=== PATIENT | female | born 1965 | race Caucasian/White ===

== ENCOUNTER 2022-09-07 22:17 | Outpatient (REF) | payer BC, SELFPAY ==
[2022-09-12 10:11] LABS: Age Gdln ACOG Testing Note (.); HPV Aptima Negative (Negative); IGP, Aptima HPV, rfx 16/18,45 Note (.)
== END 2022-09-07 22:18 | disposition home or self-care (01) ==
LOC: LAB 22:17
PROVIDERS: PCP Internal Medicine; Visit Provider Obstetrics & Gynecology
DX: Z12.4 Encounter for screening for malignant neoplasm of cervix (principal)
CPT/HCPCS: 87624; G0145

== ENCOUNTER 2022-10-19 09:28 | Outpatient (OUT) | payer BC, SELFPAY ==
--- NOTE | 2022-10-19 09:32 | XR_ITS ---
The [address] [address] Patient Name: KRYSTA CAICEDO MRN: [id number] date: 1965 Sex: F Assigned Patient Location: [facility] Current Patient Location: [facility] Accession/Order Number: [id number] Exam Date: 10/19/2022 09:34 Report Date: 10/19/2022 09:49 At the request of: GONZALO CARSON Procedure: XR hand LT min 3V PROCEDURE: XR hand LT min 3V COMPARISON: None. HISTORY: Left Thumb pain FINDINGS: BONES:No acute fracture or dislocation. Mild degenerative changes with marginal osteophyte formation SOFT TISSUES:Negative. No visible soft tissue swelling. EFFUSION:None visible. OTHER: Negative. XR/XR hand LT min 3V IMPRESSION: Mild degenerative change Electronically authenticated by: LOVE KRUGER Date: 10/19/2022 09:49
== END 2022-10-19 09:29 | disposition home or self-care (01) ==
LOC: RAD 09:28
PROVIDERS: PCP Internal Medicine; Visit Provider Anesthesiology Pain Medicine
DX: M79.645 Pain in left finger(s) (principal)
CPT/HCPCS: 73130

== ENCOUNTER 2022-11-22 09:17 | Outpatient (OUT) | payer BC, SELFPAY ==
[2022-11-22 09:31] LABS: Basophils Percent Auto 0.5 % (0.2-2.0); Eosinophils Absolute Auto 0.1 10^3/uL (0.0-0.7); Eosinophils Percent Auto 1.3 % (0.9-7.0); Hematocrit 40.5 % (36.0-48.0); Hemoglobin 13.2 g/dL (12.0-16.0); Immature Granulocytes Abs Auto 0.02 10^3/uL (0.00-0.03); Immature Granulocytes Pct Auto 0.4 % (0.0-0.5); Lymphocytes Absolute Auto 1.7 10^3/uL (1.2-3.8); Lymphocytes Percent Auto 31.2 % (20.5-60.0); Mean Corpuscular HGB Conc 32.6 g/dL (29.9-35.2); Mean Corpuscular Hemoglobin 28.9 pg (26.7-34.0); Mean Corpuscular Volume 88.6 fL (81.0-99.0); Mean Platelet Volume 8.7 fL (9.5-13.5); Monocytes Absolute Auto 0.5 10^3/uL (0.3-0.8); Monocytes Percent Auto 8.9 % (1.7-12.0); Neutrophils Absolute Auto 3.2 10^3/uL (1.4-6.5); Neutrophils Percent Auto 57.7 % (43.0-75.0); Platelet Count 251 10^3/uL (150-450); Red Blood Count 4.57 10^6/uL (4.20-5.40); Red Cell Distribution Width 11.4 % (11.0-15.0); White Blood Count 5.5 10^3/uL (4.0-11.0)
[2022-11-22 09:52] LABS: Estimated Average Glucose 111 mg/dL; Glycohemoglobin A1C 5.5 % (4.5-6.2)
[2022-11-22 10:13] LABS: Anion Gap 12.8; Carbon Dioxide 28.9 mmol/L (21.0-32.0); Chloride 105 mmol/L (98-107); Potassium 4.7 mmol/L (3.5-5.1); Sodium 142 mmol/L (136-145)
[2022-11-22 10:14] LABS: Alanine Aminotransferase 27 U/L (14-59); Alkaline Phosphatase 95 U/L (46-116); Aspartate Amino Transferase 19 U/L (15-37); BUN Creatinine Ratio 18.7; Bilirubin Total 0.5 mg/dL (0.2-1.0); Calcium 9.5 mg/dL (8.5-10.1); Estimated GFR (African America >60 (>=60); Estimated GFR (Non-African Ame 53 (>=60); Glucose 101 mg/dL (74-106); Total Protein 7.4 g/dL (6.4-8.2)
[2022-11-22 10:15] LABS: Albumin Globulin Ratio 1.2; Chol HDL Ratio 4.1; Cholesterol 178 mg/dL (<=200); Globulin 3.4 g/dL; HDL Cholesterol 43 mg/dL (40-60); Thyroid Stimulating Hormone 1.428 uIU/mL (0.358-3.740); Triglycerides 138 mg/dL (<=150); VLDL CHOLESTEROL 27.6 mg/dL
== END 2022-11-22 09:18 | disposition home or self-care (01) ==
LOC: LAB 09:17
PROVIDERS: PCP Internal Medicine; Visit Provider Internal Medicine
DX: Z00.00 Encounter for general adult medical examination without abnormal findings (principal)
CPT/HCPCS: 36415; 80053; 80061; 83036; 84443; 85025

== ENCOUNTER 2022-12-26 11:28 | Day surgery (SDC) | payer BC, SELFPAY ==
[2022-12-26] MEDS: CEFAZOLIN SODIUM/DEXTROSE,ISO 2 GM/50 ML PIGGYBACK IV (11:44)
[2022-12-26] MEDS: LIDOCAINE HCL 1%-EPINEPHRINE 1:100,000 20 ML MDV INJ (12:00)
[2022-12-26] MEDS: BUPIVACAINE HCL 0.5% PF 50 MG/10 ML VIAL INJ (12:00)
--- NOTE | 2022-12-26 12:48 | PM.ORPRC ---
Procedure Note Date of procedure: 12/26/22 Pre-op diagnosis: 1. Right trigger thumb Post-op diagnosis: same as pre-op Procedure: Operation performed: Right trigger thumb release Operative procedure: After informed consent was obtained the patient was brought to the operating room. In the preoperative holding area 2.5 mL 1% lidocaine with epinephrine and 2.5 mL 0.5% Marcaine plain were injected into the soft tissue over the proposed incision site of the right trigger thumb. The right hand was prepped and draped in the usual sterile fashion. A 1.5 cm incision was made in pre-existing transverse thumb crease overlying the A1 ernie. Blunt dissection was carried down through soft tissue in order to preserve superficial neurovascular structures. A1 ernie was identified and incised completely. Underlying tendon was visualized and found to be normal. Patient was then asked to flex and extend the finger and the triggering was resolved. The wound was irrigated and closed with nylon suture. Sterile dressing was placed. Patient was brought to the recovery room in stable condition. There were no intraoperative or immediate postoperative complications. Anesthesia: local Surgeon: Prudencio Prado Estimated blood loss (mL): 2 Pathology: none sent Condition: stable Disposition: PACU
== END 2022-12-26 12:45 | disposition home or self-care (01) ==
PROVIDERS: PCP Internal Medicine; Visit Provider Orthopaedic Surgery
PROC: (CPT 26055; principal; 2022-12-26 12:00)
DX: M65.311 Trigger thumb, right thumb (principal)
CPT/HCPCS: 26055

== ENCOUNTER 2023-01-03 12:20 | Outpatient (OUT) | payer BC, SELFPAY | END 2023-01-03 12:21 | disposition home or self-care (01) | LOC: PST 12:21 | PROVIDERS: PCP Internal Medicine; Visit Provider Orthopaedic Surgery | DX: Z01.818 Encounter for other preprocedural examination (principal); M65.311 Trigger thumb, right thumb ==

== ENCOUNTER 2023-02-15 12:29 | Outpatient (OUT) | payer BC, SELFPAY | END 2023-02-15 12:30 | disposition home or self-care (01) | LOC: PST 12:30 | PROVIDERS: PCP Internal Medicine; Visit Provider Orthopaedic Surgery | DX: Z01.818 Encounter for other preprocedural examination (principal); M65.311 Trigger thumb, right thumb ==

== ENCOUNTER 2023-02-20 12:11 | Day surgery (SDC) | payer BC, SELFPAY ==
[2023-02-20] MEDS: VANCOMYCIN HCL 1,000 MG in 0.9 % SODIUM CHLORIDE 250 ML 250 MG IV (12:42)
[2023-02-20 12:43] VITALS: BP 157/84; PULSE 102; RESP 20; TEMP 36.4; O2SAT 98
[2023-02-20] MEDS: BUPIVACAINE HCL 0.5% PF 50 MG/10 ML VIAL 3 ML INJ (13:40)
[2023-02-20] MEDS: LIDOCAINE HCL 1%-EPINEPHRINE 1:100,000 10 ML MDV 3 ML INJ (13:40)
--- NOTE | 2023-02-20 14:17 | PM.ORPRC ---
Procedure Note Date of procedure: 02/20/23 Pre-op diagnosis: Left trigger thumb Post-op diagnosis: same as pre-op Procedure: Preoperative Diagnosis: Left trigger thumb Postoperative Diagnosis: Same Operative Procedure: Left trigger thumb release Surgeon: Jerzy Prado MD Anesthesia: Local Estimated Blood Loss: Minimal Tourniquet Time: None Complications: None Indications for surgery: The patient has had painful triggering in the above noted fingers/fingers. Treatment options were discussed with the patient as well as risks and benefits and they have elected to proceed with the above surgery. Operative Procedure: After informed consent was obtained the patient was brought to the operating room and placed in the supine position. Preoperatively they received intravenous antibiotics and local anesthetic infiltrated over the A1 ernie of the left thumb. 3 mL 1% lidocaine with epinephrine combined with 3 mL half percent Marcaine plain was utilized. The arm was prepped and draped in the usual sterile fashion. . A 1 cm incision was made in a preexisting transverse crease overlying the A1 ernie. Blunt dissection was carried down to the A1 ernie. The ernie was then incised from distal to proximal. Complete release was performed. The underlying tendon was visualized and found to be normal. The patient then flexed the digit and the triggering had resolved. The wound was irrigated and closed with a nylon suture. A sterile dressing was placed. The patient was then brought to the recovery room. There were no intraoperative or postoperative complications. Anesthesia: local Surgeon: Prudencio Prado Estimated blood loss (mL): 1 Pathology: none sent Condition: stable Disposition: PACU
== END 2023-02-20 14:19 | disposition home or self-care (01) ==
PROVIDERS: PCP Internal Medicine; Visit Provider Orthopaedic Surgery
PROC: (CPT 26055; principal; 2023-02-20 13:00)
DX: M65.312 Trigger thumb, left thumb (principal)
CPT/HCPCS: 26055; J3370

== ENCOUNTER 2023-09-13 19:51 | Outpatient (REF) | payer BC, SELFPAY ==
[2023-09-18 09:08] LABS: Age Gdln ACOG Testing Note (.); HPV Aptima Negative (Negative); IGP, Aptima HPV, rfx 16/18,45 Note (.)
== END 2023-09-13 19:52 | disposition home or self-care (01) ==
LOC: LAB 19:51
PROVIDERS: PCP Internal Medicine; Visit Provider Obstetrics & Gynecology
DX: Z01.419 Encounter for gynecological examination (general) (routine) without abnormal findings (principal)
CPT/HCPCS: 87624; 88175

== ENCOUNTER 2023-09-15 07:28 | Outpatient (OUT) | payer BC, SELFPAY ==
--- OUTSIDE RECORDS SUMMARY | 2023-09-15 07:30 | XMS_ITS ---
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 Name Role Phone DIEGO, DR GUTIERREZ Primary Care Unavailable BALL, DR GUTIERREZ Admitting Unavailable BALL, DR GUTIERREZ Attending Unavailable BALL, DR GUTIERREZ Consulting Unavailable LAKSHMIPATHY ., NARENDRAMAN Admitting Karen vailable NEFCY, PETER Consulting Unavailable BALL, DR GUTIERREZ Primary Care Unavailable LAKSHMIPATHY ., GONZALO Attending Karen vailable LAKSHMIPATHY ., GONZALO Consulting Karen vailable STEPHANIE ., DR JOYA Admitting Unavailable WEST, DR LOVE Smart Consulting Unavailable BALL, DR GUTIERREZ Primary Care Unavailable STEPHANIE ., DR JOYA Attending Unavailable STEPHANIE ., DR JOYA Consulting Unavailable REQUEST, DR GUTIERREZ LISTED Admitting Unavaila ble REQUEST, DR GUTIERREZ LISTED Attending Unavaila ble REQUEST, DR GUTIERREZ LISTED Consulting Unavaila ble BALL, DR GUTIERREZ Primary Care Unavailable BALL, DR GUTIERREZ Primary Care Unavailable LAKSHMIPATHY ., GONZALO Admitting Karen vailable LAKSHMIPATHY ., GONZALO Attending Karen vailable STEPHANIE ., DR JOYA Admitting Unavailable STEPHANIE ., DR JOYA Attending Unavailable STEPHANIE ., DR JOYA Consulting Unavailable BALL, DR GUTIERREZ Primary Care Unavailable STEPHANIE, TOAN Attending Unavailable Encounters Encounter Date Encounter Type Care Provider Facility Start: 09-13-2023 End: 09-13-2023 ambulatory TOAN DENNISO Not Available Start: 06-24-[address] MATT CORTEZ Facili ty:[facility] Start: 06-16-2022 End: 06-17-2022 ambulatory GONZALO CORTEZSHMIPATHY . Facility:[facility] Start: 12-31-2021 End: 01-01-[address] GUTIERREZ LISTED REQUEST Facility: Start: 11-19-2021 Encounter for genera l adult medical examination without abnormal findings DR MATT CORTEZ [facility] Start: 11-17-2021 End: 11-18-[address] MATT CORTEZ Facility:[facility] Start: 11-17-2021 End: 11-18-2021 Encounter for general adult medical examination without abnormal findings DR MATT CORTEZ Facility:[facility] Start: 07-21-2021 End: 07-21-[address] TOAN BROWN . Facility:[facility] Start: 07-07-2021 End: 07-08-[address] TOAN BROWN . Facility:[facility] Payers Date Payer Category Payer Unknown [id number] 2019 Unknown [id number] 1965 Unknown [id number] 2.16.84 [id number] 1965 Unknown [id number] 2.16.84 [id number] 1965 Unknown [id number] 2.16.84 [id number] 1965 Unknown [id number] 2.16.84 [id number] 1965 Unknown [id number] 2.16.84 [id number] 1965 Unknown [id number] 2.16.84 [id number] 1959 Self-pay Unknown [id number] 2.16.84 [id number] Problems Active Problems Problem Classification Problem Date Documented Date Episodic/Chronic Other connective tissue disease (4 sources) Pain in right finger(s); Translations: [PAIN IN RIGHT FINGERS] Onset: 06-24-2022 Episodic Other connective tissue disease (1 source) Other enthesopathies, not elsewhere classified; Translations: [OTHER ENTHESOPATHIES NEC] Onset: 06-27-2022 Episodic Past or Other Problems Problem Classification Problem Date Documented Date Episodic/Chronic Immunizations and screening for infectious disease (1 source) Encounter for screening for human papillomavirus (HPV); Translations: [ENC SCREENING HUMAN PAPILLOMAVIRUS] Onset: 07-22-2021 Episodic Other screening for suspected conditions (not mental disorders or infectious disease) (8 sources) Encounter for screening for malignant neoplasm of cervix; Translations: [Encounter for screening mammogram for malignant neoplasm of breast] Onset: 07-07-2021 Episodic Residual codes; unclassified (1 source) Family history of malignant neoplasm of digestive organs; Translations: [FAM HX MALYANA NEOPLASM DIGESTIV ORGN] Onset: 07-09-2021 Episodic Residual codes; unclassified (1 source) Family history of malignant neoplasm of trachea, bronchus and lung; Translations: [FAM HX MALIG NEOPLSM TRACH BRON LNG] Onset: 07-09-2021 Episodic Results Test Name Value Interpretation Reference Range Facility XR HAND RT MIN 3Von 06-17-19 XR HAND RT MIN 3V EXAM: XR HAND RT MIN 2 V HISTORY: Pain in right thumb COMPARISON: None. TECHNIQUE: 2 views of the right hand were obtained. FINDINGS: There is no evidence of an acute fracture or dislocation. There is slight narrowing at the first carpometacarpal joint and the first metacarpophalangeal joint. The remainder the joint spaces are intact. No abnormal soft tissue calcification or radiopaque foreign body is identified. IMPRESSION: Slight degenerative changes are present in the thumb, as described. There is no evidence of an acute fracture or dislocation. No abnormal soft tissue calcifications are present. Comparison with a previous study may be helpful in determining the chronicity of these findings. Electronically authenticated by: AUTUMN QUIÑONEZ Date: 2022-06-16 19:00 Normal [facility] CBC AUTO DIFFon 12-31-2021 BASO # 0.0 103/ul Normal 0.0-0.1 [facility] Comment on above: Performed By: #### D ATCBC #### [facility] [address] [address] [address] Roni Esquivel Basophils/100 WBC (Bld) 0.4 % Normal 0.2-2.0 [facility] Comment on above: Performed By: #### D ATCBC #### [facility] [address] [address] [address] Roni Esquivel EO # 0.1 103/ul Normal 0.0-0.7 [facility] Comment on above: Performed By: #### D ATCBC #### [facility] [address] [address] [address] Roni Esquivel Eosinophils/100 WBC (Bld) 1.9 % Normal 0.9-7.0 [facility] Comment on above: Performed By: #### D ATCBC #### [facility] [address] [place] [address] Dr. Roni Esquivel Erythrocyte distribution width (RBC) [Ratio] 12.2 % Normal 11.0-15.0 [facility] Comment on above: Performed By: #### D ATCBC #### [facility] [address] [place] [address] Dr. Roni Esquivel Hematocrit (Bld) [Volume fraction] 37.1 % Normal 36.0-48.0 [facility] Comment on above: Performed By: #### D ATCBC #### [facility] [address] [place] [address] Dr. Roni Esquivel Hemoglobin (Bld) [Mass/Vol] 11.9 g/dL Critically low 12.0-16.0 [facility] Comment on above: Performed By: #### D ATCBC #### [facility] [address] [place] [address] Dr. Roni Esquivel IG # 0.01 10e3/ul Normal 0.00-0.03 [facility] Comment on above: Performed By: #### D ATCBC #### [facility] [address] [place] [address] Dr. Roni Esquivel IG % 0.2 % Normal 0.0-0.5 [facility] Comment on above: Performed By: #### D ATCBC #### [facility] [address] [place] [address] Dr. Roni Esquivel LYMPH # 2.2 103/ul Normal 1.2-3.8 [facility] Comment on above: Performed By: #### D ATCBC #### [facility] [address] [place] [address] Dr. Roni Esquivel Lymphocytes/100 WBC (Bld) 41.5 % Normal 20.5-60.0 [facility] Comment on above: Performed By: #### D ATCBC #### [facility] [address] [address] [address] Roni Esquivel MCH (RBC) [Entitic mass] 28.6 pg Normal 26.7-34.0 [facility] Comment on above: Performed By: #### D ATCBC #### [facility] [address] [place] [address] Dr. Roni Esquivel MCHC (RBC) [Mass/Vol] 32.1 g/dL Normal 29.9-35.2 [facility] Comment on above: Performed By: #### D ATCBC #### [facility] [address] [place] [address] Dr. Roni Esquivel MCV (RBC) [Entitic vol] 89.2 fL Normal 81.0-99.0 [facility] Comment on above: Performed By: #### D ATCBC #### [facility] [address] [place] [address] Dr. Roni Esquivel MONO # 0.4 103/ul Normal 0.3-0.8 [facility] Comment on above: Performed By: #### D ATCBC #### [facility] [address] [place] [address] Dr. Roni Esquivel Monocytes/100 WBC (Bld) 7.7 % Normal 1.7-12.0 [facility] Comment on above: Performed By: #### D ATCBC #### [facility] [address] [place] [address] Dr. Roni Esquivel NEUT # 2.6 103/ul Normal 1.4-6.5 [facility] Comment on above: Performed By: #### D ATCBC #### [facility] [address] [place] [address] Dr. Roni Esquievl Neutrophils/100 WBC (Bld) 48.3 % Normal 43.0-75.0 [facility] Comment on above: Performed By: #### D ATCBC #### [facility] [address] [place] [address] Dr. Roni Esquivel Platelet mean volume (Bld) [Entitic vol] 8.7 fL Critically low 9.5-13.5 [facility] Comment on above: Performed By: #### D ATCBC #### [facility] [address] [address] [address] Roni Esquivel PLT 264 103/ul Normal 150-450 [facility] Comment on above: Performed By: #### D ATCBC #### [facility] [address] [address] [address] Roni Esquivel RBC 4.16 106/ul Critically low 4.20-5.40 [facility] Comment on above: Performed By: #### D ATCBC #### [facility] [address] [address] [address] Roni Esquivel WBC 5.4 103/ul Normal 4.0-11.0 [facility] Comment on above: Performed By: #### D ATCBC #### [facility] [address] [address] [address] Roni Esquivel HIEN- BMP WITH LIPIDon 2021 Anion gap [Moles/Vol] 8.4 mmol/L Normal [facility] Comment on above: Performed By: #### D ATBMP #### [facility] [address] [address] [address] Roni Esquivel Calcium [Mass/Vol] 9.4 mg/dL Normal 8.5-10.1 [facility] [place] [facility] Comment on above: Performed By: #### D ATBMP #### [facility] [address] [address] [address] Roni Esquivel Chloride [Moles/Vol] 106 mmol/L Normal 98-107 [facility] Comment on above: Performed By: #### D ATBMP #### [facility] [address] [address] [address] Roni Esquivel Cholesterol [Mass/Vol] 173 mg/dL Normal <=200 [facility] Comment on above: Performed By: #### D ATBMP #### [facility] [address] [address] [address] Roni Esquivel Cholesterol in HDL [Mass/Vol] 47 mg/dL Normal 40-60 [facility] Comment on above: Performed By: #### D ATBMP #### [facility] [address] [address] [address] Roni Esquivel Cholesterol in LDL [Mass/Vol] 108.6 mg/dL Normal [facility] Comment on above: Performed By: #### D ATBMP #### [facility] [address] [address] [address] Roni Esquivel CO2 [Moles/Vol] 30.0 mmol/L Normal 21.0-32.0 [facility] Comment on above: Performed By: #### D ATBMP #### [facility] [address] [address] [address] Roni Esquivel Creatinine [Mass/Vol] 1.15 mg/dL Critically high 0.55-1.02 [facility] Comment on above: Performed By: #### D ATBMP #### [facility] [address] [address] [address] Roni Esquivel EGFR-AF [place] 59 mL/min/1.73m2 Critically low >=60 [facility] Comment on above: Performed By: #### D ATBMP #### [facility] [address] [address] [address] Roni Esquivel EGFR-NON AF [place] 49 mL/min/1.73m2 Critically low >=60 [facility] Comment on above: Performed By: #### D ATBMP #### [facility] [address] [address] [address] Roni Esquivel Glucose [Mass/Vol] 102 mg/dL Normal 74-106 [facility] [place] [facility] Comment on above: Performed By: #### D ATBMP #### [facility] [address] [address] [address] Roni Esquivel HDL NORMAL > or = 60 mg/dl - LO W CARDIOVASCULAR RISK <40 mg/dl - HIGH CARDIOVASCULAR RISK Normal [facility] Comment on above: Performed By: #### D ATBMP #### [facility] [address] [address] [address] Roni Esquivel LDL CALC NORMAL SEE BELOW Normal [facility] Comment on above: Result Comment: <100 mg/dl OPTIMAL 100 - 129 mg/dl NEAR OR ABOVE OPTIMAL 130 - 159 mg/dl BORDERLINE HIGH 160 - 189 mg/dl HIGH >190 mg/dl VERY HIGH Performed By: #### D ATBMP #### [facility] [address] [address] [address] Roni Esquivel Potassium [Moles/Vol] 4.4 mmol/L Normal 3.5-5.1 [facility] Comment on above: Performed By: #### D ATBMP #### [facility] [address] [address] [address] Roni Esquivel Sodium [Moles/Vol] 140 mmol/L Normal 136-145 [facility] [place] [facility] Comment on above: Performed By: #### D ATBMP #### [facility] [address] [place] [address] Dr. Roni Esquivel Triglyceride [Mass/Vol] 87 mg/dL Normal <=150 [facility] Comment on above: Performed By: #### D ATBMP #### [facility] [address] [place] [address] Dr. Roni Esquivel Urea nitrogen [Mass/Vol] 17.0 mg/dL Normal 7.0-18.0 [facility] Comment on above: Performed By: #### D ATBMP #### [facility] [address] [place] [address] Dr. Roni Esquivel Urea nitrogen/Creatinine [Mass ratio] 14.8 mg/mg Normal [facility] Comment on above: Performed By: #### D ATBMP #### [facility] [address] [place] [address] Dr. Roni Esquivel VLDL CALC 17.4 mg/dL Normal [facility] Comment on above: Performed By: #### D ATBMP #### [facility] [address] [place] [address] Dr. Roni Esquivel CBC AUTO DIFFon 11-17-2021 BASO # 0.0 103/ul Normal 0.0-0.1 [facility] Comment on above: Performed By: #### C BC #### [facility] [address] [place] [address] Dr. Roni Esquivel Basophils/100 WBC (Bld) 0.3 % Normal 0.2-2.0 [facility] Comment on above: Performed By: #### C BC #### [facility] [address] [place] [address] Dr. Roni Esquivel EO # 0.1 103/ul Normal 0.0-0.7 [facility] Comment on above: Performed By: #### C BC #### [facility] [address] [place] [address] Dr. Roni Esquivel Eosinophils/100 WBC (Bld) 1.3 % Normal 0.9-7.0 [facility] Comment on above: Performed By: #### C BC #### [facility] [address] [place] [address] Dr. Roni Esquivel Erythrocyte distribution width (RBC) [Ratio] 11.9 % Normal 11.0-15.0 [facility] Comment on above: Performed By: #### C BC #### [facility] [address] [place] [address] Dr. Roni Esquivel Hematocrit (Bld) [Volume fraction] 40.3 % Normal 36.0-48.0 [facility] Comment on above: Performed By: #### C BC #### [facility] [address] [place] [address] Dr. Roni Esquivel Hemoglobin (Bld) [Mass/Vol] 12.6 g/dL Normal 12.0-16.0 [facility] Comment on above: Performed By: #### C BC #### [facility] [address] [place] [address] Dr. Roni Esquivel IG # 0.01 10e3/ul Normal 0.00-0.03 [facility] Comment on above: Performed By: #### C BC #### [facility] [address] [place] [address] Dr. Roni Esquivel IG % 0.2 % Normal 0.0-0.5 [facility] Comment on above: Performed By: #### C BC #### [facility] [address] [place] [address] Dr. Roni Esquivel LYMPH # 2.0 103/ul Normal 1.2-3.8 [facility] Comment on above: Performed By: #### C BC #### [facility] [address] [place] [address] Dr. Roni Esquivel Lymphocytes/100 WBC (Bld) 32.4 % Normal 20.5-60.0 [facility] Comment on above: Performed By: #### C BC #### [facility] [address] [place] [address] Dr. Roni Esquivel MANUAL DIFF REQ NO Normal [facility] Comment on above: Performed By: #### C BC #### [facility] [address] [place] [address] Dr. Roni Esquivel MCH (RBC) [Entitic mass] 27.8 pg Normal 26.7-34.0 [facility] Comment on above: Performed By: #### C BC #### [facility] [address] [place] [address] Dr. Roni Esquivel MCHC (RBC) [Mass/Vol] 31.3 g/dL Normal 29.9-35.2 [facility] Comment on above: Performed By: #### C BC #### [facility] [address] [place] [address] Dr. Roni Esquivel MCV (RBC) [Entitic vol] 89.0 fL Normal 81.0-99.0 [facility] Comment on above: Performed By: #### C BC #### [facility] [address] [place] [address] Dr. Roni Esquivel MONO # 0.6 103/ul Normal 0.3-0.8 [facility] Comment on above: Performed By: #### C BC #### [facility] [address] [place] [address] Dr. Roni Esquivel Monocytes/100 WBC (Bld) 9.2 % Normal 1.7-12.0 [facility] Comment on above: Performed By: #### C BC #### [facility] [address] [place] [address] Dr. Roni Esquivel NEUT # 3.6 103/ul Normal 1.4-6.5 [facility] Comment on above: Performed By: #### C BC #### [facility] [address] [address] [address] Roni Esquivel Neutrophils/100 WBC (Bld) 56.6 % Normal 43.0-75.0 [facility] Comment on above: Performed By: #### C BC #### [facility] [address] [address] [address] Roni Esquivel Platelet mean volume (Bld) [Entitic vol] 8.8 fL Critically low 9.5-13.5 [facility] Comment on above: Performed By: #### C BC #### [facility] [address] [place] [address] Dr. Roni Esquivel PLT 274 103/ul Normal 150-450 [facility] Comment on above: Performed By: #### C BC #### [facility] [address] [place] [address] Dr. Roni Esquivel RBC 4.53 106/ul Normal 4.20-5.40 [facility] Comment on above: Performed By: #### C BC #### [facility] [address] [address] [address] Roni Esquivel WBC 6.3 103/ul Normal 4.0-11.0 [facility] Comment on above: Performed By: #### C BC #### [facility] [address] [place] [address] Dr. Roni Esquivel GLYCOHEMOGLOBIN A1Con 2021 ADA RECOMMENDATION SEE BELOW Normal [facility] [place] [facility] Comment on above: Result Comment: ADA RECOMMENDED LIMIT 4.0 - 6.0 ADA THERAPEUTIC TARGET < 7.0 ACTION SUGGESTED > 7.0 Performed By: #### A 1C #### [facility] [address] [place] [address] Dr. Roni Esquivel Glucose [Mass/Vol] 114 mg/dL Normal [facility] Comment on above: Performed By: #### A 1C #### [facility] [address] [place] [address] Dr. Roni Esquivel HbA1c (Bld) [Mass fraction] 5.6 % Normal 4.5-6.2 [facility] Comment on above: Performed By: #### A 1C #### [facility] [address] [address] [address] Roni Esquivel LIPID PROFILEon 11-17-2021 CHOL-HDL RATIO NORM SEE BELOW Normal [facility] Comment on above: Result Comment: 3.3 - 4.4 LOW RISK 4.4 - 7.1 AVERAGE RISK 7.1 - 11.0 MODERATE RISK >11.0 HIGH RISK Performed By: #### T SH, CMP, LIPID #### [facility] [address] [address] [address] Roni Esquivel Cholesterol [Mass/Vol] 263 mg/dL Critically high <=200 [facility] Comment on above: Performed By: #### T SH, CMP, LIPID #### [facility] [address] [address] [address] Roni Esquivel Cholesterol in HDL [Mass/Vol] 42 mg/dL Normal 40-60 [facility] Comment on above: Performed By: #### T SH, CMP, LIPID #### [facility] [address] [address] [address] Roni Esquivel Cholesterol in LDL [Mass/Vol] 202.2 mg/dL Normal [facility] Comment on above: Performed By: #### T SH, CMP, LIPID #### [facility] [address] [address] [address] Roni Esquivel Cholesterol.total/Cho lesterol in HDL [Mass ratio] 6.3 {ratio} Normal [facility] Comment on above: Performed By: #### T SH, CMP, LIPID #### [facility] [address] [place], [place] [address] Dr. Roni Esquivel HDL NORMAL > or = 60 mg/dl - LO W CARDIOVASCULAR RISK <40 mg/dl - HIGH CARDIOVASCULAR RISK Normal [facility] Comment on above: Performed By: #### T SH, CMP, LIPID #### [facility] [address] [place], [place] [address] Dr. Roni Esquivel LDL CALC NORMAL SEE BELOW Normal [facility] Comment on above: Result Comment: <100 mg/dl OPTIMAL 100 - 129 mg/dl NEAR OR ABOVE OPTIMAL 130 - 159 mg/dl BORDERLINE HIGH 160 - 189 mg/dl HIGH >190 mg/dl VERY HIGH Performed By: #### T MISSY CMP, LIPID #### [facility] [address] [place] [address] Dr. Roni Esquivel Triglyceride [Mass/Vol] 94 mg/dL Normal <=150 [facility] Comment on above: Performed By: #### T MISSY CMP, LIPID #### [facility] [address] [place] [address] Dr. Roni Esquivel VLDL CALC 18.8 mg/dL Normal [facility] Comment on above: Performed By: #### T ELIS [place], LIPID #### [facility] [address] [place] [address] Dr. Roni Esquivel PROF 14(COMP METB)on 022 Albumin [Mass/Vol] 3.7 g/dL Normal 3.4-5.0 [facility] Comment on above: Performed By: #### T MISSY CMP, LIPID #### [facility] [address] [place] [address] Dr. Roni Esquivel Albumin/Globulin [Mass ratio] 1.1 {ratio} Normal [facility] Comment on above: Performed By: #### T MISSY CMP, LIPID #### [facility] [address] [place] [address] Dr. Roni Esquivel ALP [Catalytic activity/Vol] 108 U/L Normal 46-116 [facility] Comment on above: Performed By: #### T MISSY CMP, LIPID #### [facility] [address] [place] [address] Dr. Roni Esquivel ALT [Catalytic activity/Vol] 19 U/L Normal 14-59 [facility] Comment on above: Performed By: #### T MISSY CMP, LIPID #### [facility] [address] [place] [address] Dr. Roni Esquivel Anion gap [Moles/Vol] 9.1 mmol/L Normal [facility] Comment on above: Performed By: #### T MISSY CMP, LIPID #### [facility] [address] [address] [address] Roni Esquivel AST [Catalytic activity/Vol] 20 U/L Normal 15-37 [facility] Comment on above: Performed By: #### T SH, CMP, LIPID #### [facility] [address] [address] [address] Roni Esquivel Bilirubin [Mass/Vol] 0.3 mg/dL Normal 0.2-1.0 [facility] Comment on above: Performed By: #### T SH, CMP, LIPID #### [facility] [address] [address] [address] Roni Esquivel Calcium [Mass/Vol] 9.1 mg/dL Normal 8.5-10.1 [facility] [place] [facility] Comment on above: Performed By: #### T SH, CMP, LIPID #### [facility] [address] [place] [address] Dr. Roni Esquivel Chloride [Moles/Vol] 103 mmol/L Normal 98-107 [facility] Comment on above: Performed By: #### T SH, CMP, LIPID #### [facility] [address] [address] [address] Roni Esquivel CO2 [Moles/Vol] 31.4 mmol/L Normal 21.0-32.0 [facility] Comment on above: Performed By: #### T SH, CMP, LIPID #### [facility] [address] [address] [address] Roni Esquivel Creatinine [Mass/Vol] 1.03 mg/dL Critically high 0.55-1.02 [facility] Comment on above: Performed By: #### T SH, CMP, LIPID #### [facility] [address] [address] [address] Roni Esquivel EGFR-AF [place] >60 Normal >=60 [facility] Comment on above: Performed By: #### T SH, CMP, LIPID #### [facility] [address] [place] [address] Dr. Roni Esquivel EGFR-NON AF [place] 55 mL/min/1.73m2 Critically low >=60 [facility] Comment on above: Performed By: #### T SH, CMP, LIPID #### [facility] [address] [address] [address] Roni Esquivel Globulin (S) [Mass/Vol] 3.4 g/dL Normal [facility] Comment on above: Performed By: #### T SH, CMP, LIPID #### [facility] [address] [place] [address] Dr. Roni Esquivel Glucose [Mass/Vol] 92 mg/dL Normal 74-106 [facility] [place] [facility] Comment on above: Performed By: #### T SH, CMP, LIPID #### [facility] [address] [place] [address] Dr. Roni Esquivel Potassium [Moles/Vol] 4.5 mmol/L Normal 3.5-5.1 [facility] Comment on above: Performed By: #### T SH, CMP, LIPID #### [facility] [address] [place] [address] Dr. Roni Esquivel Protein [Mass/Vol] 7.1 g/dL Normal 6.4-8.2 [facility] Comment on above: Performed By: #### T SH, CMP, LIPID #### [facility] [address] [place] [address] Dr. Roni Esquivel Sodium [Moles/Vol] 139 mmol/L Normal 136-145 [facility] Comment on above: Performed By: #### T SH, CMP, LIPID #### [facility] [address] [place] [address] Dr. Roni Esquivel Urea nitrogen [Mass/Vol] 16.0 mg/dL Normal 7.0-18.0 [facility] Comment on above: Performed By: #### T SH, CMP, LIPID #### [facility] [address] [place] [address] Dr. Roni Esquivel Urea nitrogen/Creatinine [Mass ratio] 15.5 mg/mg Normal [facility] Comment on above: Performed By: #### T SH, CMP, LIPID #### [facility] [address] [place] [address] Dr. Roni Esquivel TSHon 11-17-2021 TSH 1.139 uIU/mL Normal 0.358-3.740 [facility] Comment on above: Performed By: #### T SH, CMP, LIPID #### [facility] [address] [place] [address] Dr. Roni Esquivel PAP ACOG PANEL 2: 30 to 65on 07-27-2021 . . Normal [facility] Comment on above: Result Comment: Perf ormed at: WB Performed By: #### [id number] #### [facility] [address] [place] [address] Dr. Roni Esquivel Age Gdln ACOG Testing 30-65 [facility] Comment on above: Performed By: #### [id number] #### [facility] [address] [place] [address] Dr. Roni Esquivel DIAGNOSIS: Comment Normal [facility] Comment on above: Result Comment: NEGA TIVE FOR INTRAEPITHELIAL LESION OR MALIGNANCY. Performed at: WB Performed By: #### [id number] #### [facility] [address] [place] [address] Dr. Roni Esquivel HPV Aptima Negative Normal Negative [facility] Comment on above: Result Comment: This nucleic acid amplification test detects fourteen high-risk HPV types (16,18,31,33,35,39,45,51,52,56,58,59,66,68) without differentiation. Performed at: =G Performed By: #### [id number] #### [facility] [address] [place] [address] Dr. Roni Esquivel Methodology: Comment Normal [facility] Comment on above: Result Comment: This liquid based ThinPrep(R) pap test was screened with the use of an image guided system. Performed at: WB Performed By: #### [id number] #### [facility] [address] [place] [address] Dr. Roni Esquivel Note: Comment Normal [facility] Comment on above: Result Comment: The Pap smear is a screening test designed to aid in the detection of premalignant and malignant conditions of the uterine cervix. It is not a diagnostic procedure and should not be used as the sole means of detecting cervical cancer. Both false-positive and false-negative reports do occur. . Performed at: WB Performed By: #### [id number] #### [facility] [address] [address] [address] Roni Esquivel Performed by: Comment Normal [facility] Comment on above: Result Comment: Su Charles, Salt Manager (ASCP) Performed at: WB Performed By: #### [id number] #### [facility] [address] [address] [address] Roni Esquivel Specimen adequacy: Comment Normal [facility] Comment on above: Result Comment: Sati sfactory for evaluation. Endocervical and/or squamous metaplastic cells (endocervical component) are present. Performed at: WB Performed By: #### [id number] #### [facility] [address] [address] [address] Roni Esquivel MG MAMM SCREEN 3D CARSON CADon 07-07-2021 MG MAMM SCREEN 3D CARSON CAD Patient: KRYSTA CAICEDO Exam Date: 07/07/2021 : 1965 Gender:F Ordering : DR TOAN BROWN . Admission #: [id number] Family : Order #: [id number] CLICK HERE TO VIEW EXAM RADIOLOGY REPORT PROCEDURE: MAMMOGRAM SCREENING 3D BILATERAL CAD COMPARISON: MG MAMM CARSON DIAG W CAD, 12/18/2019. MG MAMM SCREEN 3D CARSON CAD, 06/24/2020. INDICATIONS: Screening mammography Calculator Name NCI Breast Cancer Risk Assessment Tool 5 Year Breast Cancer Risk 1.70% Lifetime Breast Cancer Risk 11.90% Personal Breast Cancer No Personal Ovarian Cancer No Treatments None Family Cancers Mother with bowel cancer at age 55; Grandfather-maternal with bowel cancer at age 67; Grandmother-paternal with lung cancer at age 65. LOCATION: [facility] BREAST COMPOSITION: Heterogeneously dense,which may obscure small masses. FINDINGS: DIAGNOSTIC CATEGORY 2--BENIGN FINDING. NO CHANGE FROM COMPARISON. Scattered benign-appearing nodules are present. Scattered benign-appearing calcifications are present. Scattered benign-appearing lymph nodes are present. RIGHT BREAST: No significant suspicious finding. LEFT BREAST: No significant suspicious finding. Linear scar marker upper outer quadrant. RECOMMENDATIONS: ROUTINE MAMMOGRAM AND CLINICAL EVALUATION IN 12 MONTHS. PLEASE NOTE: A NORMAL MAMMOGRAM DOES NOT EXCLUDE THE POSSIBILITY OF BREAST CANCER. A CLINICALLY SUSPICIOUS PALPABLE LUMP SHOULD BE BIOPSIED. Dictated by: Love Muñiz MD on 07/07/2021 at 07:54 Approved by: Love Muñiz MD on 07/07/2021 at 07:56 Normal [facility] Summary Purpose Family History No Family History Records FoundNo Family History Records Found Advance Directives No Advanced Directives Records FoundNo Advanced Directives Records Found Additional Source Comments INFORMATION SOURCE (unrecogn ized section and content) DATE CREATED AUTHOR 06/30/2022 [facility] DATE CREATED AUTHOR AUTHOR'S ORGANIZ ATION 09/15/2023 [facility] EPIC FOR RECORDS PERTAINING TO PATIENTS WHO ARE OR HAVE BEEN ENROLLED IN A CHEMICAL DEPENDENCY/SUBSTANCEABUSE PROGRAM, SOME INFORMATION MAY BE OMITTED. This clinical summary was aggregated from multiple sources. Caution should be exercised in using it in the provision of clinical care. This summary normalizes information from multiple sources, and as a consequence, information in this document may materially change the coding, format and clinical context of patient data. In addition, data may be omitted in some cases. CLINICAL DECISIONS SHOULD BE BASED ON THE PRIMARY CLINICAL RECORDS. [facility] [employer] provides no warranty or guarantee of the accuracy or completeness of information in this document.
--- NOTE | 2023-09-15 07:31 | MM_ITS ---
Patient Name: KRYSTA CAICEDO MR#: [id number] : 1965 Exam Date: 09/15/2023 Ordering Doctor: DR Romulo Wong . RADIOLOGY REPORT PROCEDURE: MM TOMOSYNTHESIS SCREENING BI COMPARISON: MG MAMM SCREEN 3D CARSON CAD, 07/07/2021. MG MAMM SCREEN 3D CARSON CAD, 08/18/2022. INDICATIONS: Screening Calculator Name NCI Breast Cancer Risk Assessment Tool 5 Year Breast Cancer Risk 1.90% Lifetime Breast Cancer Risk 11.40% Personal Breast Cancer No Personal Ovarian Cancer No Treatments None Family Cancers Mother with bowel cancer at age 55; Grandfather-maternal with bowel cancer at age 67; Grandmother-paternal with lung cancer at age ~65. LOCATION: [facility] BREAST COMPOSITION: The breasts are heterogeneously dense,which may obscure small masses. FINDINGS: DIAGNOSTIC CATEGORY 2--BENIGN FINDING. NO CHANGE FROM COMPARISON. Scattered benign-appearing nodules are present. Scattered benign-appearing calcifications are present. Scattered benign-appearing lymph nodes are present. RIGHT BREAST: No significant suspicious finding. LEFT BREAST: No significant suspicious finding. RECOMMENDATIONS: ROUTINE MAMMOGRAM AND CLINICAL EVALUATION IN 12 MONTHS. PLEASE NOTE: A NORMAL MAMMOGRAM DOES NOT EXCLUDE THE POSSIBILITY OF BREAST CANCER. A CLINICALLY SUSPICIOUS PALPABLE LUMP SHOULD BE BIOPSIED. Dictated by: Naseem Muñiz MD on 09/15/2023 at 10:37 Approved by: Naseem Muñiz MD on 09/15/2023 at 10:40
== END 2023-09-15 07:29 | disposition home or self-care (01) ==
LOC: MAMMO 07:28
PROVIDERS: PCP Internal Medicine; Visit Provider Obstetrics & Gynecology
DX: Z12.31 Encounter for screening mammogram for malignant neoplasm of breast (principal); Z80.0 Family history of malignant neoplasm of digestive organs; Z80.1 Family history of malignant neoplasm of trachea, bronchus and lung
CPT/HCPCS: 77063; 77067

== ENCOUNTER 2023-12-15 07:41 | Outpatient (OUT) | payer BC, SELFPAY ==
--- OUTSIDE RECORDS SUMMARY | 2023-12-15 07:43 | XMS_ITS | CCD ---
Author Organization [facility] Care Team Providers Care Emissions Testing And Repair Technician Name Role Phone DIEGO, DR GUTIERREZ Primary Care Unavailable BALL, DR GUTIERREZ Admitting Unavailable BALL, DR GUTIERREZ Attending Unavailable BALL, DR GUTIERREZ Consulting Unavailable LAKSHMIPATHY ., GONZALO Admitting Karen vailable NEFCY, AUTUMN Consulting Unavailable BALL, DR GUTIERREZ Primary Care [...] Primary Care Unavailable STEPHANIE, TOAN Attending Unavailable Problems Active Problems Problem Classification Problem Date [...] (HPV); Translations: [ENC SCREENING HUMAN PAPILLOMAVIRUS] Onset: 04-28-2022 Episodic Other screening for suspected conditions (not mental disorders or infectious disease) (8 sources) Encounter for screening for malignant neoplasm of cervix; Translations: [Encounter for screening mammogram for malignant neoplasm of breast] Onset: 07-07-2021 Episodic Residual codes; unclassified (1 source) Family history of malignant neoplasm of digestive organs; Translations: [FAM HX MALIG NEOPLASM DIGESTIV ORGN] Onset: 07-09-2021 Episodic Residual [...] AUTUMN QUIÑONEZ Date: 2022-06-16 19:00 Normal [facility] CBC AUTO DIFFon 12-31-2021 BASO # 0.0 103/ul Normal 0.0-0.1 [facility] Comment on above: Performed By: #### D ATCBC #### [facility] [address] [place], [place] [address] Dr. Roni Esquivel Basophils/100 WBC (Bld) 0.4 % Normal 0.2-2.0 [facility] Comment on above: Performed By: #### D ATCBC #### [facility] [address] [place], [place] [address] Dr. Roni Esquivel EO # 0.1 103/ul Normal 0.0-0.7 [facility] Comment on above: Performed By: #### D ATCBC #### [facility] [address] [place] [address] Dr. Roni Esquivel Eosinophils/100 WBC (Bld) 1.9 % Normal 0.9-7.0 [facility] Comment on above: Performed By: #### D ATCBC #### [facility] [address] [place] [address] Dr. Roni Esquivel Erythrocyte distribution width (RBC) [Ratio] 12.2 % Normal 11.0-15.0 [facility] Comment on above: Performed By: #### D ATCBC #### [facility] [address] [place] [address] Dr. Roni Esquivel Hematocrit (Bld) [Volume fraction] 37.1 % Normal 36.0-48.0 [facility] Comment on above: Performed By: #### D ATCBC #### [facility] [address] [place] [address] Dr. Roni Esquivel Hemoglobin (Bld) [Mass/Vol] 11.9 g/dL Critically low 12.0-16.0 [facility] Comment on above: Performed By: #### D ATCBC #### [facility] [address] [place] [address] Dr. Roni Esquivel IG # 0.01 10e3/ul Normal 0.00-0.03 [facility] Comment on above: Performed By: #### D ATCBC #### [facility] [address] [place] [address] Dr. Roni Esquivel IG % 0.2 % Normal 0.0-0.5 [facility] Comment on above: Performed By: #### D ATCBC #### [facility] [address] [place] [address] Dr. Roni Esquivel LYMPH # 2.2 103/ul Normal 1.2-3.8 [facility] Comment on above: Performed By: #### D ATCBC #### [facility] [address] [place] [address] Dr. Roni Esquivel Lymphocytes/100 WBC (Bld) 41.5 % Normal 20.5-60.0 [facility] Comment on above: Performed By: #### D ATCBC #### [facility] [address] [place] [address] [address] Roni Esquivel MCH (RBC) [Entitic mass] 28.6 pg Normal 26.7-34.0 [facility] Comment on above: Performed By: #### D ATCBC #### [facility] [address] [place] [address] Dr. Roni Esquivel MCHC (RBC) [Mass/Vol] 32.1 g/dL Normal 29.9-35.2 [facility] Comment on above: Performed By: #### D ATCBC #### [facility] [address] [place] [address] Dr. Roni Esquivel MCV (RBC) [Entitic vol] 89.2 fL Normal 81.0-99.0 [facility] Comment on above: Performed By: #### D ATCBC #### [facility] [address] [place] [address] Dr. Roni Esquivel MONO # 0.4 103/ul Normal 0.3-0.8 [facility] Comment on above: Performed By: #### D ATCBC #### [facility] [address] [place] [address] Dr. Roni Esquivel Monocytes/100 WBC (Bld) 7.7 % Normal 1.7-12.0 [facility] Comment on above: Performed By: #### D ATCBC #### [facility] [address] [place] [address] Dr. Roni Esquivel NEUT # 2.6 103/ul Normal 1.4-6.5 [facility] Comment on above: Performed By: #### D ATCBC #### [facility] [address] [place] [address] Dr. Roni Esquivel Neutrophils/100 WBC (Bld) 48.3 % Normal 43.0-75.0 [facility] Comment on above: Performed By: #### D ATCBC #### [facility] [address] [place] [address] Dr. Roni Esquivel Platelet mean volume (Bld) [Entitic vol] 8.7 fL Critically low 9.5-13.5 [facility] Comment on above: Performed By: #### D ATCBC #### [facility] [address] [place] [address] [address] Roni Esquivel PLT 264 103/ul Normal 150-450 [facility] Comment on above: Performed By: #### D ATCBC #### [facility] [address] [place] [address] [address] Roni Esquivel RBC 4.16 106/ul Critically low 4.20-5.40 [facility] Comment on above: Performed By: #### D ATCBC #### [facility] [address] [place] [address] [address] Roni Esquivel WBC 5.4 103/ul Normal 4.0-11.0 [facility] Comment on above: Performed By: #### D ATCBC #### [facility] [address] [place] [address] [address] Roni Esquivel HIEN- BMP WITH LIPIDon 2021 Anion gap [Moles/Vol] 8.4 mmol/L Normal [facility] Comment on above: Performed By: #### D ATBMP #### [facility] [address] [place] [address] [address] Roni Esquivel Calcium [Mass/Vol] 9.4 mg/dL Normal 8.5-10.1 [facility] Comment on above: Performed By: #### D ATBMP #### [facility] [address] [place] [address] [address] Roni Esquivel Chloride [Moles/Vol] 106 mmol/L Normal 98-107 [facility] Comment on above: Performed By: #### D ATBMP #### [facility] [address] [place] [address] [address] Roni Esquivel Cholesterol [Mass/Vol] 173 mg/dL Normal <=200 [facility] Comment on above: Performed By: #### D ATBMP #### [facility] [address] [place] [address] [address] Roni Esquivel Cholesterol in HDL [Mass/Vol] 47 mg/dL Normal 40-60 [facility] Comment on above: Performed By: #### D ATBMP #### [facility] [address] [place] [address] [address] Roni Esquivel Cholesterol in LDL [Mass/Vol] 108.6 mg/dL Normal [facility] Comment on above: Performed By: #### D ATBMP #### [facility] [address] [place] [address] [address] Roni Esquivel CO2 [Moles/Vol] 30.0 mmol/L Normal 21.0-32.0 [facility] [place] [facility] Comment on above: Performed By: #### D ATBMP #### [facility] [address] [place] [address] [address] Roni Esquivel Creatinine [Mass/Vol] 1.15 mg/dL Critically high 0.55-1.02 [facility] Comment on above: Performed By: #### D ATBMP #### [facility] [address] [place] [address] [address] Roni Esquivel EGFR-AF CROATIAN 59 mL/min/1.73m2 Critically low >=60 [facility] Comment on above: Performed By: #### D ATBMP #### [facility] [address] [place] [address] [address] Roni Esquivel EGFR-NON AF CROATIAN 49 mL/min/1.73m2 Critically low >=60 [facility] Comment on above: Performed By: #### D ATBMP #### [facility] [address] [place] [address] [address] Roni Esquivel Glucose [Mass/Vol] 102 mg/dL Normal 74-106 [facility] Comment on above: Performed By: #### D ATBMP #### [facility] [address] [place] [address] [address] Roni Esquivel HDL NORMAL > or = 60 mg/dl - LO W CARDIOVASCULAR RISK <40 mg/dl - HIGH CARDIOVASCULAR RISK Normal [facility] Comment on above: Performed By: #### D ATBMP #### [facility] [address] [place] [address] [address] Roni Esquivel LDL CALC NORMAL SEE BELOW Normal [facility] Comment on above: Result Comment: <100 mg/dl OPTIMAL 100 - 129 mg/dl NEAR OR ABOVE OPTIMAL 130 - 159 mg/dl BORDERLINE HIGH 160 - 189 mg/dl HIGH >190 mg/dl VERY HIGH Performed By: #### D ATBMP #### [facility] [address] [place] [address] Dr. Roni Esquivel Potassium [Moles/Vol] 4.4 mmol/L Normal 3.5-5.1 [facility] Comment on above: Performed By: #### D ATBMP #### [facility] [address] [place] [address] Dr. Roni Esquivel Sodium [Moles/Vol] 140 mmol/L Normal 136-145 [facility] Comment on above: Performed By: #### D ATBMP #### [facility] [address] [place] [address] Dr. Roni Esquivel Triglyceride [Mass/Vol] 87 mg/dL Normal <=150 [facility] Comment on above: Performed By: #### D ATBMP #### [facility] [address] [place] [address] Dr. Roni Esquivel Urea nitrogen [Mass/Vol] 17.0 mg/dL Normal 7.0-18.0 [facility] Comment on above: Performed By: #### D ATBMP #### [facility] [address] [place] [address] Dr. Roni Esquivel Urea nitrogen/Creatinine [Mass ratio] 14.8 mg/mg Normal [facility] Comment on above: Performed By: #### D ATBMP #### [facility] [address] [place] [address] Dr. Roni Esquivel VLDL CALC 17.4 mg/dL Normal [facility] Comment on above: Performed By: #### D ATBMP #### [facility] [address] [place] [address] Dr. Roni Esquivel CBC AUTO DIFFon 11-17-2021 BASO # 0.0 103/ul Normal 0.0-0.1 [facility] Comment on above: Performed By: #### C BC #### [facility] [address] [place] [address] Dr. Roni Esquivel Basophils/100 WBC (Bld) 0.3 % Normal 0.2-2.0 [facility] Comment on above: Performed By: #### C BC #### [facility] [address] [place] [address] Dr. Roni Esquivel EO # 0.1 103/ul Normal 0.0-0.7 [facility] Comment on above: Performed By: #### C BC #### [facility] [address] [place] [address] Dr. Roni Esquivel Eosinophils/100 WBC (Bld) 1.3 % Normal 0.9-7.0 [facility] Comment on above: Performed By: #### C BC #### [facility] [address] [place] [address] Dr. Roni Esquivel Erythrocyte distribution width (RBC) [Ratio] 11.9 % Normal 11.0-15.0 [facility] Comment on above: Performed By: #### C BC #### [facility] [address] [place] [address] Dr. Roni Esquivel Hematocrit (Bld) [Volume fraction] 40.3 % Normal 36.0-48.0 [facility] Comment on above: Performed By: #### C BC #### [facility] [address] [place] [address] Dr. Roni Esquivel Hemoglobin (Bld) [Mass/Vol] 12.6 g/dL Normal 12.0-16.0 [facility] Comment on above: Performed By: #### C BC #### [facility] [address] [place] [address] Dr. Roni Esquivel IG # 0.01 10e3/ul Normal 0.00-0.03 [facility] Comment on above: Performed By: #### C BC #### [facility] [address] [place] [address] Dr. Roni Esquivel IG % 0.2 % Normal 0.0-0.5 [facility] Comment on above: Performed By: #### C BC #### [facility] [address] [place] [address] Dr. Roni Esquivel LYMPH # 2.0 103/ul Normal 1.2-3.8 [facility] Comment on above: Performed By: #### C BC #### [facility] [address] [place] [address] Dr. Roni Esquivel Lymphocytes/100 WBC (Bld) 32.4 % Normal 20.5-60.0 [facility] Comment on above: Performed By: #### C BC #### [facility] [address] [place] [address] Dr. Roni Esquivel MANUAL DIFF REQ NO Normal [facility] Comment on above: Performed By: #### C BC #### [facility] [address] [place] [address] Dr. Roni Esquivel MCH (RBC) [Entitic mass] 27.8 pg Normal 26.7-34.0 [facility] Comment on above: Performed By: #### C BC #### [facility] [address] [place] [address] Dr. Roni Esquivel MCHC (RBC) [Mass/Vol] 31.3 g/dL Normal 29.9-35.2 [facility] Comment on above: Performed By: #### C BC #### [facility] [address] [place] [address] Dr. Roni Esquivel MCV (RBC) [Entitic vol] 89.0 fL Normal 81.0-99.0 [facility] Comment on above: Performed By: #### C BC #### [facility] [address] [place] [address] Dr. Roni Esquivel MONO # 0.6 103/ul Normal 0.3-0.8 [facility] Comment on above: Performed By: #### C BC #### [facility] [address] [place] [address] Dr. Roni Esquivel Monocytes/100 WBC (Bld) 9.2 % Normal 1.7-12.0 [facility] Comment on above: Performed By: #### C BC #### [facility] [address] [place] [address] Dr. Roni Esquivel NEUT # 3.6 103/ul Normal 1.4-6.5 [facility] Comment on above: Performed By: #### C BC #### [facility] [address] [place] [address] Dr. Roni Esquivel Neutrophils/100 WBC (Bld) 56.6 % Normal 43.0-75.0 [facility] Comment on above: Performed By: #### C BC #### [facility] [address] [place] [address] Dr. Roni Esquivel Platelet mean volume (Bld) [Entitic vol] 8.8 fL Critically low 9.5-13.5 [facility] Comment on above: Performed By: #### C BC #### [facility] [address] [place] [address] Dr. Roni Esquivel PLT 274 103/ul Normal 150-450 [facility] Comment on above: Performed By: #### C BC #### [facility] [address] [place] [address] Dr. Roni Esquivel RBC 4.53 106/ul Normal 4.20-5.40 [facility] Comment on above: Performed By: #### C BC #### [facility] [address] [place] [address] Dr. Roni Esquivel WBC 6.3 103/ul Normal 4.0-11.0 [facility] Comment on above: Performed By: #### C BC #### [facility] [address] [place] [address] Dr. Roni Esquivel GLYCOHEMOGLOBIN A1Con 2021 ADA RECOMMENDATION SEE BELOW Normal [facility] Comment on above: Result Comment: ADA RECOMMENDED LIMIT 4.0 - 6.0 ADA THERAPEUTIC TARGET < 7.0 ACTION SUGGESTED > 7.0 Performed By: #### A 1C #### [facility] [address] [place] [address] Dr. Roni Esquivel Glucose [Mass/Vol] 114 mg/dL Normal [facility] Comment on above: Performed By: #### A 1C #### [facility] [address] [place] [address] Dr. Roni Esquivel HbA1c (Bld) [Mass fraction] 5.6 % Normal 4.5-6.2 [facility] Comment on above: Performed By: #### A 1C #### [facility] [address] [place] [address] [address] Roni Esquivel LIPID PROFILEon 11-17-2021 CHOL-HDL RATIO NORM SEE BELOW Normal [facility] Comment on above: Result Comment: 3.3 - 4.4 LOW RISK 4.4 - 7.1 AVERAGE RISK 7.1 - 11.0 MODERATE RISK >11.0 HIGH RISK Performed By: #### T SH, CMP, LIPID #### [facility] [address] [place] [address] [address] Roni Esquivel Cholesterol [Mass/Vol] 263 mg/dL Critically high <=200 [facility] Comment on above: Performed By: #### T SH, CMP, LIPID #### [facility] [address] [place] [address] [address] Roni Esquivel Cholesterol in HDL [Mass/Vol] 42 mg/dL Normal 40-60 [facility] Comment on above: Performed By: #### T SH, CMP, LIPID #### [facility] [address] [place], [place] [address] Dr. Roni Esquivel Cholesterol in LDL [Mass/Vol] 202.2 mg/dL Normal [facility] Comment on above: Performed By: #### T SH, CMP, LIPID #### [facility] [address] [place], [place] [address] Dr. Roni Esquivel Cholesterol.total/Cho lesterol in HDL [Mass ratio] 6.3 {ratio} Normal [facility] Comment on above: Performed By: #### T SH, CMP, LIPID #### [facility] [address] [place], [place] [address] Dr. Roni Esquivel HDL NORMAL > or = 60 mg/dl - LO W CARDIOVASCULAR RISK <40 mg/dl - HIGH CARDIOVASCULAR RISK Normal [facility] Comment on above: Performed By: #### T SH, CMP, LIPID #### [facility] [address] [place], [place] [address] Dr. Roni Esquivel LDL CALC NORMAL SEE BELOW Normal [facility] Comment on above: Result Comment: <100 mg/dl OPTIMAL 100 - 129 mg/dl NEAR OR ABOVE OPTIMAL 130 - 159 mg/dl BORDERLINE HIGH 160 - 189 mg/dl HIGH >190 mg/dl VERY HIGH Performed By: #### T SH, CMP, LIPID #### [facility] [address] [place] [address] [address] Roni Esquivel Triglyceride [Mass/Vol] 94 mg/dL Normal <=150 [facility] Comment on above: Performed By: #### T SH, CMP, LIPID #### [facility] [address] [place] [address] [address] Roni Esquivel VLDL CALC 18.8 mg/dL Normal [facility] Comment on above: Performed By: #### T SH, CMP, LIPID #### [facility] [address] [place] [address] Dr. Roni Esquivel PROF 14(COMP METB)on 022 Albumin [Mass/Vol] 3.7 g/dL Normal 3.4-5.0 [facility] Comment on above: Performed By: #### T SH, CMP, LIPID #### [facility] [address] [place] [address] Dr. Roni Esquivel Albumin/Globulin [Mass ratio] 1.1 {ratio} Normal [facility] Comment on above: Performed By: #### T SH, CMP, LIPID #### [facility] [address] [place] [address] Dr. Roni Esquivel ALP [Catalytic activity/Vol] 108 U/L Normal 46-116 [facility] Comment on above: Performed By: #### T SH, CMP, LIPID #### [facility] [address] [place] [address] [address] Roni Esquivel ALT [Catalytic activity/Vol] 19 U/L Normal 14-59 [facility] Comment on above: Performed By: #### T SH, CMP, LIPID #### [facility] [address] [place] [address] [address] Roni Esquivel Anion gap [Moles/Vol] 9.1 mmol/L Normal [facility] Comment on above: Performed By: #### T SH, CMP, LIPID #### [facility] [address] [place] [address] [address] Roni Esquivel AST [Catalytic activity/Vol] 20 U/L Normal 15-37 [facility] Comment on above: Performed By: #### T SH, CMP, LIPID #### [facility] [address] [place] [address] [address] Roni Esquivel Bilirubin [Mass/Vol] 0.3 mg/dL Normal 0.2-1.0 [facility] Comment on above: Performed By: #### T SH, CMP, LIPID #### [facility] [address] [place] [address] [address] Roni Esquivel Calcium [Mass/Vol] 9.1 mg/dL Normal 8.5-10.1 [facility] Comment on above: Performed By: #### T SH, CMP, LIPID #### [facility] [address] [place] [address] [address] Roni Esquivel Chloride [Moles/Vol] 103 mmol/L Normal 98-107 [facility] Comment on above: Performed By: #### T SH, CMP, LIPID #### [facility] [address] [place] [address] [address] Roni Esquivel CO2 [Moles/Vol] 31.4 mmol/L Normal 21.0-32.0 [facility] [place] [facility] Comment on above: Performed By: #### T SH, CMP, LIPID #### [facility] [address] [address] [address] Roni Esquivel Creatinine [Mass/Vol] 1.03 mg/dL Critically high 0.55-1.02 [facility] Comment on above: Performed By: #### T SH, CMP, LIPID #### [facility] [address] [place] [address] [address] Roni Esquivel EGFR-AF CROATIAN >60 Normal >=60 [facility] Comment on above: Performed By: #### T SH, CMP, LIPID #### [facility] [address] [place] [address] [address] Roni Esquivel EGFR-NON AF CROATIAN 55 mL/min/1.73m2 Critically low >=60 [facility] Comment on above: Performed By: #### T SH, CMP, LIPID #### [facility] [address] [address] [address] Roni Esquivel Globulin (S) [Mass/Vol] 3.4 g/dL Normal [facility] Comment on above: Performed By: #### T SH, CMP, LIPID #### [facility] [address] [place] [address] Dr. Roni Esquivel Glucose [Mass/Vol] 92 mg/dL Normal 74-106 [facility] Comment on above: Performed By: #### T SH, CMP, LIPID #### [facility] [address] [place] [address] Dr. Roni Esquivel Potassium [Moles/Vol] 4.5 mmol/L Normal 3.5-5.1 [facility] Comment on above: Performed By: #### T SH, CMP, LIPID #### [facility] [address] [place] [address] Dr. Roni Esquivel Protein [Mass/Vol] 7.1 g/dL Normal 6.4-8.2 The [facility] Comment on above: Performed By: #### T SH, CMP, LIPID #### [facility] [address] [place] [address] Dr. Roni Esquivel Sodium [Moles/Vol] 139 mmol/L Normal 136-145 [facility] Comment on above: Performed By: #### T SH, CMP, LIPID #### [facility] [address] [place] [address] Dr. Roni Esquivel Urea nitrogen [Mass/Vol] 16.0 mg/dL Normal 7.0-18.0 [facility] Comment on above: Performed By: #### T SH, CMP, LIPID #### [facility] [address] [place] [address] Dr. Roni Esquivel Urea nitrogen/Creatinine [Mass ratio] 15.5 mg/mg Normal [facility] Comment on above: Performed By: #### T SH, CMP, LIPID #### [facility] [address] [place] [address] Dr. Roni Esquivel TSHon 11-17-2021 TSH 1.139 uIU/mL Normal 0.358-3.740 [facility] Comment on above: Performed By: #### T SH, CMP, LIPID #### [facility] [address] [address] [address] Roni Esquivel PAP ACOG PANEL 2: 30 to 65on 07-27-2021 . . Normal [facility] Comment on above: Result Comment: Perf ormed at: WB Performed By: #### [id number] #### [facility] [address] [address] [address] Roni Esquivel Age Gdln ACOG Testing 30-65 [facility] Comment on above: Performed By: #### [id number] #### [facility] [address] [place] [address] Dr. Roni Esquivel DIAGNOSIS: Comment Normal [facility] Comment on above: Result Comment: NEGA TIVE FOR INTRAEPITHELIAL LESION OR MALIGNANCY. Performed at: WB Performed By: #### [id number] #### [facility] [address] [place] [address] Dr. Roni Esquivel HPV Aptima Negative Normal Negative [facility] Comment on above: Result Comment: This nucleic acid amplification test detects fourteen high-risk HPV types (16,18,31,33,35,39,45,51,52,56,58,59,66,68) without differentiation. Performed at: =G Performed By: #### [id number] #### [facility] [address] [place] [address] Dr. Roni Esquivel Methodology: Comment Normal [facility] Comment on above: Result Comment: This liquid based ThinPrep(R) pap test was screened with the use of an image guided system. Performed at: WB Performed By: #### [id number] #### [facility] [address] [place] [address] Dr. Roni Esquivel Note: Comment Normal [facility] Comment on above: Result Comment: The Pap smear is a screening test designed to aid in the detection of premalignant and malignant conditions of the uterine cervix. It is not a diagnostic procedure and should not be used as the sole means of detecting cervical cancer. Both false-positive and false-negative reports do occur. . Performed at: WB Performed By: #### [id number] #### [facility] [address] [place], [place] [address] Dr. Roni Esquivel Performed by: Comment Normal [facility] Comment on above: Result Comment: Su Charles, Tong Hooker (ASCP) Performed at: WB Performed By: #### [id number] #### [facility] [address] [place], [place] [address] Dr. Roni Esquivel Specimen adequacy: Comment Normal [facility] Comment on above: Result Comment: Sati sfactory for evaluation. Endocervical and/or squamous metaplastic cells (endocervical component) are present. Performed at: WB Performed By: #### [id number] #### [facility] [address] [place], [place] [address] Dr. Roni Esquivel MG MAMM SCREEN 3D CARSON CADon 07-07-2021 MG MAMM SCREEN 3D CARSON CAD Patient: KRYSTA CAICEDO Exam Date: 07/07/2021 : 1965 Gender:F Ordering : DR TOAN BROWN . Admission #: [id number] Family : Order #: [id number] CLICK HERE TO VIEW EXAM RADIOLOGY REPORT [...] lung cancer at age 65. LOCATION: [facility] BREAST COMPOSITION: Heterogeneously dense,which may obscure small [...] Muñiz MD on 07/07/2021 at 07:56 Normal [facility] Encounters Encounter Date Encounter Type Care Provider Facility Start: 09-13-2023 End: 09-13-2023 ambulatory TOAN BROWN Not Available Start: 06-24-[address] MATT CORTEZ Facili ty:[facility] Start: 06-16-2022 End: 06-17-2022 ambulatory GONZALO CARSON . Facility: Start: 12-31-2021 End: 01-01-[address] GUTIERREZ LISTED REQUEST Facility:[facility] Start: 11-19-2021 Encounter for genera l adult medical examination without abnormal findings DR MATT CORTEZ [facility] Start: 11-17-2021 End: 11-18-[address] MATT CORTEZ Facility:[facility] Start: 11-17-2021 End: 11-18-2021 Encounter for general adult medical examination without abnormal findings DR MATT CORTEZ Facility:[facility] Start: 07-21-2021 End: 07-21-[address] TOAN BROWN . Facility:[facility] Start: 07-07-2021 End: 07-08-[address] TOAN BROWN . Facility: Payers Date Payer Category Payer Unknown [id number] 2019 Unknown [id number] 1965 Unknown [id number] 2.16.84 [id number] 1965 Unknown [id number] 2.16.84 [id number] 1965 Unknown [id number] 2.16.84 [id number] 1965 Unknown [id number] 2.16.84 [id number] 1965 Unknown [id number] 2.16.84 [id number] 1965 Unknown [id number] .16.84 [id number] 1959 Self-pay Unknown [id number] 2.16.84 [id number] Summary Purpose Family History No Family History Records FoundNo Family History Records Found Advance Directives No Advanced Directives Records FoundNo Advanced Directives Records Found Additional Source Comments INFORMATION SOURCE (unrecogn ized section and content) DATE CREATED AUTHOR 06/30/2022 [facility] DATE CREATED AUTHOR AUTHOR'S NELSON ATVALERI 09/15/2023 [facility] FOR RECORDS PERTAINING TO PATIENTS WHO ARE [...] BE BASED ON THE PRIMARY CLINICAL RECORDS. [facility] [employer] provides no warranty or guarantee of the accuracy or completeness of information in this document.
[2023-12-15 07:52] LABS: Basophils Percent Auto 0.3 % (0.2-2.0); Eosinophils Absolute Auto 0.1 10^3/uL (0.0-0.7); Eosinophils Percent Auto 1.1 % (0.9-7.0); Hematocrit 40.3 % (36.0-48.0); Hemoglobin 12.8 g/dL (12.0-16.0); Immature Granulocytes Abs Auto 0.02 10^3/uL (0.00-0.03); Immature Granulocytes Pct Auto 0.3 % (0.0-0.5); Lymphocytes Absolute Auto 2.1 10^3/uL (1.2-3.8); Lymphocytes Percent Auto 34.4 % (20.5-60.0); Mean Corpuscular HGB Conc 31.8 g/dL (29.9-35.2); Mean Corpuscular Hemoglobin 28.3 pg (26.7-34.0); Mean Corpuscular Volume 89.2 fL (81.0-99.0); Mean Platelet Volume 8.8 fL (9.5-13.5); Monocytes Absolute Auto 0.4 10^3/uL (0.3-0.8); Monocytes Percent Auto 7.2 % (1.7-12.0); Neutrophils Absolute Auto 3.5 10^3/uL (1.4-6.5); Neutrophils Percent Auto 56.7 % (43.0-75.0); Platelet Count 274 10^3/uL (150-450); Red Blood Count 4.52 10^6/uL (4.20-5.40); Red Cell Distribution Width 11.8 % (11.0-15.0); White Blood Count 6.1 10^3/uL (4.0-11.0)
[2023-12-15 09:32] LABS: Alanine Aminotransferase 25 U/L (14-59); Albumin Globulin Ratio 1.3; Albumin Level 3.9 g/dL (3.4-5.0); Alkaline Phosphatase 98 U/L (46-116); Aspartate Amino Transferase 21 U/L (15-37); BUN Creatinine Ratio 14.1; Bilirubin Total 0.5 mg/dL (0.2-1.0); Calcium 9.1 mg/dL (8.5-10.1); Chloride 103 mmol/L (98-107); Chol HDL Ratio 3.8; Cholesterol 169 mg/dL (<=200); Estimated GFR (African America >60 (>=60); Estimated GFR (Non-African Ame 58 (>=60); Glucose 92 mg/dL (74-106); HDL Cholesterol 44 mg/dL (40-60); LDL Cholesterol Calculated 101.4 mg/dL; Potassium 4.1 mmol/L (3.5-5.1); Sodium 138 mmol/L (136-145); Thyroid Stimulating Hormone 1.673 uIU/mL (0.358-3.740); Total Protein 6.9 g/dL (6.4-8.2); Triglycerides 118 mg/dL (<=150); VLDL CHOLESTEROL 23.6 mg/dL
[2023-12-15 09:41] LABS: Anion Gap 11.1
[2023-12-15 10:21] LABS: Estimated Average Glucose 108 mg/dL; Glycohemoglobin A1C 5.4 % (4.5-6.2)
== END 2023-12-15 07:42 | disposition home or self-care (01) ==
LOC: LAB 07:42
PROVIDERS: PCP Internal Medicine; Visit Provider Internal Medicine
DX: Z00.00 Encounter for general adult medical examination without abnormal findings (principal)
CPT/HCPCS: 36415; 80053; 80061; 83036; 84443; 85025

== ENCOUNTER 2024-01-23 14:30 | Outpatient (OUT) | payer BC, SELFPAY ==
--- OUTSIDE RECORDS SUMMARY | 2024-01-23 14:38 | XMS_ITS | CCD ---
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 Phone DIEGO, DR GUTIERREZ Primary [...] Unavailable STEPHANIE ., DR JOYA Attending Unavailable STEHPANIE ., DR JOYA Consulting Unavailable REQUEST, DR [...] Primary Care Unavailable STEPHANIE, TOAN Attending Unavailable LATOYA CHEEK Attending Unavailable MARCOS PERALTA Referring MARCOS Reilly Primary Care Unavailable Marcos Peralta DO Primary Care Provider Medications Current Medications Medication Drug Class(es) Dates Sig (Normalized) Sig (Original) atorvastatin 40 mg oral tablet (1 source) HMG-CoA Reductase Inhibitor take 1 tablet by mouth in the morning atorvastatin (LIPITOR) 40 mg tablet Take 1 tablet (40 mg total) by mouth in the morning. Active peg 3350-sod sulf,txep-nhk-lru 178.7-7.3-0.5 gram recon soln (1 source) Start: 12-27-2023 End: 12-28-2023 peg 3350-sod sulf,luix-sks-ffd 178.7-7.3-0.5 gram recon soln Indications: Encounter for colonoscopy in patient with family history of colon cancer Take 1 kit by mouth once daily for 1 dose. Please see instructional sheet given by physicians office. 1 each 12/27/2023 12/28/2023 Active Completed/Discontinued Medications Medication Drug Class(es) Dates Sig (Normalized) Sig (Original) calcium carbonate 1250 mg / cholecalciferol 200 unt oral tablet (1 source) Vitamin D End: 4 take 1 tablet by mouth once in the morning calcium carbonate-vitamin D3 (OSCAL 500 + D) 500 mg(1,250mg) -200 units per tablet Take 1 tablet by mouth in the morning and 1 tablet in the evening. Take with meals. 12/27/2023 Discontinued (Therapy completed) magnesium sulfate 0.0277 meq/ml / potassium sulfate 0.0374 meq/ml / sodium sulfate 0.257 meq/ml oral solution (1 source) Start: 9 End: 4 sodium,potassium,mag sulfates (SUPREP BOWEL PREP KIT) 17.5-3.13-1.6 gram recon soln 177 ml actual weight 2 times daily Oral 1 kit 07/20/2018 12/27/2023 Discontinued (Therapy completed) 1 ml medroxyPROGESTERone acetate 150 mg/ml injection (1 source) Progestin End: 4 medroxyPROGESTERone (DEPO-PROVERA) 150 mg/mL injection Inject 1 mL (150 mg total) into the appropriate muscle every 3 (three) months. 12/27/2023 Discontinued (Therapy completed) Problems Active Problems Problem Classification Problem Date Documented Date Episodic/Chronic Other connective tissue disease (4 sources) Pain in right finger(s); Translations: [PAIN IN RIGHT FINGERS] Onset: 06-24-2022 Episodic Other connective tissue disease (1 source) Other enthesopathies, not elsewhere classified; Translations: [OTHER ENTHESOPATHIES NEC] Onset: 06-27-2022 Episodic Other screening for suspected conditions (not mental disorders or infectious disease) (10 sources) Encounter for screening for malignant neoplasm of cervix; Translations: [Encounter for screening mammogram for malignant neoplasm of breast] Onset: 07-07-2021 Episodic Residual codes; unclassified (2 sources) Family history of malignant neoplasm of digestive organs; Translations: [FAM HX MALIG NEOPLASM DIGESTIV ORGN] Onset: 07-09-2021 Episodic Unclassified (1 source) Colon Cancer Screening Onset: 12-27-2023 Past or Other Problems Problem Classification Problem Date Documented Date Episodic/Chronic Immunizations and screening for infectious disease (1 source) Encounter for screening for human papillomavirus (HPV); Translations: [ENC SCREENING HUMAN PAPILLOMAVIRUS] Onset: 07-22-2021 Episodic Residual codes; unclassified (1 source) Family history of malignant neoplasm of trachea, bronchus and lung; Translations: [FAM HX MALIG NEOPLSM TRACH BRON LNG] Onset: 07-09-2021 Episodic Results Test Name Value Interpretation Reference Range Facility XR HAND RT MIN 3Von 06-17-19 23 XR HAND RT MIN 3V EXAM: XR [...] AUTUMN QUIÑONEZ Date: 2022-06-16 19:00 Normal [facility] CBC AUTO DIFFon 12-31-2021 BASO # 0.0 103/ul Normal 0.0-0.1 [facility] Comment on above: Performed By: #### D ATCBC #### [facility] [address] [place], [place] [address] Dr. Roni Esquivel Basophils/100 WBC (Bld) 0.4 % Normal 0.2-2.0 [facility] Comment on above: Performed By: #### D ATCBC #### [facility] [address] [place] [address] Dr. Roni Esquivel EO # 0.1 103/ul Normal 0.0-0.7 [facility] Comment on above: Performed By: #### D ATCBC #### [facility] [address] [place] [address] Dr. Roni Esquivel Eosinophils/100 WBC (Bld) 1.9 % Normal 0.9-7.0 [facility] Comment on above: Performed By: #### D ATCBC #### [facility] [address] [place] [address] Dr. Roni Esquivel Erythrocyte distribution width (RBC) [Ratio] 12.2 % Normal 11.0-15.0 [facility] Comment on above: Performed By: #### D ATCBC #### [facility] [address] [place] [address] Dr. Roni Esquivel Hematocrit (Bld) [Volume fraction] 37.1 % Normal 36.0-48.0 [facility] Comment on above: Performed By: #### D ATCBC #### [facility] [address] [place] [address] Dr. Roni Esquivel Hemoglobin (Bld) [Mass/Vol] 11.9 g/dL Critically low 12.0-16.0 [facility] Comment on above: Performed By: #### D ATCBC #### [facility] [address] [place] [address] Dr. Roni Esquivel IG # 0.01 10e3/ul Normal 0.00-0.03 [facility] Comment on above: Performed By: #### D ATCBC #### [facility] [address] [place] [address] Dr. Roni Esquivel IG % 0.2 % Normal 0.0-0.5 [facility] Comment on above: Performed By: #### D ATCBC #### [facility] [address] [place] [address] Dr. Roni sEquivel LYMPH # 2.2 103/ul Normal 1.2-3.8 [facility] Comment on above: Performed By: #### D ATCBC #### [facility] [address] [place] [address] Dr. Roni Esquivel Lymphocytes/100 WBC (Bld) 41.5 % Normal 20.5-60.0 [facility] Comment on above: Performed By: #### D ATCBC #### [facility] [address] [place] [address] Dr. Roni Esquivel MCH (RBC) [Entitic mass] 28.6 pg Normal 26.7-34.0 [facility] Comment on above: Performed By: #### D ATCBC #### [facility] [address] [place] [address] Dr. Roni Esquivel MCHC (RBC) [Mass/Vol] 32.1 g/dL Normal 29.9-35.2 [facility] Comment on above: Performed By: #### D ATCBC #### [facility] [address] [place] [address] Dr. Roni Esquivel MCV (RBC) [Entitic vol] 89.2 fL Normal 81.0-99.0 [facility] Comment on above: Performed By: #### D ATCBC #### [facility] [address] [place] [address] Dr. Roni Esquivel MONO # 0.4 103/ul Normal 0.3-0.8 [facility] Comment on above: Performed By: #### D ATCBC #### [facility] [address] [place] [address] Dr. Roni Esquivel Monocytes/100 WBC (Bld) 7.7 % Normal 1.7-12.0 [facility] Comment on above: Performed By: #### D ATCBC #### [facility] [address] [place] [address] Dr. Roni Esquivel NEUT # 2.6 103/ul Normal 1.4-6.5 [facility] Comment on above: Performed By: #### D ATCBC #### [facility] [address] [place] [address] Dr. Roni Esquivel Neutrophils/100 WBC (Bld) 48.3 % Normal 43.0-75.0 [facility] Comment on above: Performed By: #### D ATCBC #### [facility] [address] [place] [address] [address] Roni Esquivel Platelet mean volume (Bld) [Entitic vol] 8.7 fL Critically low 9.5-13.5 [facility] Comment on above: Performed By: #### D ATCBC #### [facility] [address] [place] [address] [address] Roni Esquivel PLT 264 103/ul Normal 150-450 [facility] Comment on above: Performed By: #### D ATCBC #### [facility] [address] [address] [address] Roni Esquivel RBC 4.16 106/ul Critically low 4.20-5.40 [facility] Comment on above: Performed By: #### D ATCBC #### [facility] [address] [place] [address] Dr. Roni Esquivel WBC 5.4 103/ul Normal 4.0-11.0 [facility] Comment on above: Performed By: #### D ATCBC #### [facility] [address] [place] [address] Dr. Roni Esquivel HIEN- BMP WITH LIPIDon 2021 Anion gap [Moles/Vol] 8.4 mmol/L Normal [facility] Comment on above: Performed By: #### D ATBMP #### [facility] [address] [place] [address] Dr. Roni Esquivel Calcium [Mass/Vol] 9.4 mg/dL Normal 8.5-10.1 [facility] Comment on above: Performed By: #### D ATBMP #### [facility] [address] [address] [address] Roni Esquivel Chloride [Moles/Vol] 106 mmol/L Normal 98-107 [facility] Comment on above: Performed By: #### D ATBMP #### [facility] [address] [address] [address] Roni Esquivel Cholesterol [Mass/Vol] 173 mg/dL Normal <=200 [facility] Comment on above: Performed By: #### D ATBMP #### [facility] [address] [address] [address] Roni Esquivel Cholesterol in HDL [Mass/Vol] 47 mg/dL Normal 40-60 [facility] Comment on above: Performed By: #### D ATBMP #### [facility] [address] [address] [address] Roni Esquivel Cholesterol in LDL [Mass/Vol] 108.6 mg/dL Normal [facility] Comment on above: Performed By: #### D ATBMP #### [facility] [address] [address] [address] Roni Esquivel CO2 [Moles/Vol] 30.0 mmol/L Normal 21.0-32.0 [facility] Comment on above: Performed By: #### D ATBMP #### [facility] [address] [address] [address] Roni Esquivel Creatinine [Mass/Vol] 1.15 mg/dL Critically high 0.55-1.02 [facility] Comment on above: Performed By: #### D ATBMP #### [facility] [address] [address] [address] Roni Esquivel EGFR-AF CZECH 59 mL/min/1.73m2 Critically low >=60 [facility] Comment on above: Performed By: #### D ATBMP #### [facility] [address] [address] [address] Roni Esquivel EGFR-NON AF CZECH 49 mL/min/1.73m2 Critically low >=60 [facility] Comment on above: Performed By: #### D ATBMP #### [facility] [address] [address] [address] Roni Esquivel Glucose [Mass/Vol] 102 mg/dL Normal 74-106 [facility] Comment on above: Performed By: #### D ATBMP #### [facility] [address] [address] [address] Roni Esquivel HDL NORMAL > or = 60 mg/dl - LO W CARDIOVASCULAR RISK <40 mg/dl - HIGH CARDIOVASCULAR RISK Normal [facility] Comment on above: Performed By: #### D ATBMP #### [facility] [address] [address] [address] Roni Esquivel LDL CALC NORMAL SEE BELOW Normal [facility] Comment on above: Result Comment: <100 mg/dl OPTIMAL 100 - 129 mg/dl NEAR OR ABOVE OPTIMAL 130 - 159 mg/dl BORDERLINE HIGH 160 - 189 mg/dl HIGH >190 mg/dl VERY HIGH Performed By: #### D ATBMP #### [facility] [address] [address] [address] Roni Esquivel Potassium [Moles/Vol] 4.4 mmol/L Normal 3.5-5.1 [facility] Comment on above: Performed By: #### D ATBMP #### [facility] [address] [address] [address] Roni Esquivel Sodium [Moles/Vol] 140 mmol/L Normal 136-145 [facility] Comment on above: Performed By: #### D ATBMP #### [facility] [address] [address] [address] Roni Esquivel Triglyceride [Mass/Vol] 87 mg/dL Normal <=150 [facility] Comment on above: Performed By: #### D ATBMP #### [facility] [address] [address] [address] Roni Esquivel Urea nitrogen [Mass/Vol] 17.0 mg/dL Normal 7.0-18.0 [facility] Comment on above: Performed By: #### D ATBMP #### [facility] [address] [address] [address] Roni Esquivel Urea nitrogen/Creatinine [Mass ratio] 14.8 mg/mg Normal [facility] Comment on above: Performed By: #### D ATBMP #### [facility] [address] [address] [address] Roni Esquivel VLDL CALC 17.4 mg/dL Normal [facility] Comment on above: Performed By: #### D ATBMP #### [facility] [address] [address] [address] Roni Esquivel CBC AUTO DIFFon 11-17-2021 BASO # 0.0 103/ul Normal 0.0-0.1 [facility] Comment on above: Performed By: #### C BC #### [facility] [address] [place] [address] Dr. Roni Esquivel Basophils/100 WBC (Bld) 0.3 % Normal 0.2-2.0 [facility] Comment on above: Performed By: #### C BC #### [facility] [address] [place] [address] Dr. Roni Esquivel EO # 0.1 103/ul Normal 0.0-0.7 [facility] Comment on above: Performed By: #### C BC #### [facility] [address] [place] [address] Dr. Roni Esquivel Eosinophils/100 WBC (Bld) 1.3 % Normal 0.9-7.0 [facility] Comment on above: Performed By: #### C BC #### [facility] [address] [place] [address] Dr. Roni Esquivel Erythrocyte distribution width (RBC) [Ratio] 11.9 % Normal 11.0-15.0 [facility] Comment on above: Performed By: #### C BC #### [facility] [address] [place] [address] Dr. Roni Esquivel Hematocrit (Bld) [Volume fraction] 40.3 % Normal 36.0-48.0 [facility] Comment on above: Performed By: #### C BC #### [facility] [address] [place] [address] Dr. Rnoi Esquivel Hemoglobin (Bld) [Mass/Vol] 12.6 g/dL Normal 12.0-16.0 [facility] Comment on above: Performed By: #### C BC #### [facility] [address] [place] [address] Dr. Roni Esquivel IG # 0.01 10e3/ul Normal 0.00-0.03 [facility] Comment on above: Performed By: #### C BC #### [facility] [address] [place] [address] Dr. Roni Esquivel IG % 0.2 % Normal 0.0-0.5 [facility] Comment on above: Performed By: #### C BC #### [facility] [address] [place] [address] Dr. Roni Esquivel LYMPH # 2.0 103/ul Normal 1.2-3.8 [facility] Comment on above: Performed By: #### C BC #### [facility] [address] [place] [address] Dr. Roni Esquivel Lymphocytes/100 WBC (Bld) 32.4 % Normal 20.5-60.0 [facility] Comment on above: Performed By: #### C BC #### [facility] [address] [place] [address] Dr. Roni Esquivel MANUAL DIFF REQ NO Normal [facility] Comment on above: Performed By: #### C BC #### [facility] [address] [place] [address] Dr. Roni Esquivel MCH (RBC) [Entitic mass] 27.8 pg Normal 26.7-34.0 [facility] Comment on above: Performed By: #### C BC #### [facility] [address] [place] [address] Dr. Roni Esquivel MCHC (RBC) [Mass/Vol] 31.3 g/dL Normal 29.9-35.2 [facility] Comment on above: Performed By: #### C BC #### [facility] [address] [place] [address] Dr. Roni Esquivel MCV (RBC) [Entitic vol] 89.0 fL Normal 81.0-99.0 [facility] Comment on above: Performed By: #### C BC #### [facility] [address] [place] [address] Dr. Roni Esquivel MONO # 0.6 103/ul Normal 0.3-0.8 [facility] Comment on above: Performed By: #### C BC #### [facility] [address] [place] [address] Dr. Roni Esquivel Monocytes/100 WBC (Bld) 9.2 % Normal 1.7-12.0 [facility] Comment on above: Performed By: #### C BC #### [facility] [address] [place] [address] Dr. Roni Esquivel NEUT # 3.6 103/ul Normal 1.4-6.5 [facility] Comment on above: Performed By: #### C BC #### [facility] [address] [place] [address] Dr. Roni Esquivel Neutrophils/100 WBC (Bld) 56.6 % Normal 43.0-75.0 [facility] Comment on above: Performed By: #### C BC #### [facility] [address] [place] [address] Dr. Roni Esquivel Platelet mean volume (Bld) [Entitic vol] 8.8 fL Critically low 9.5-13.5 [facility] Comment on above: Performed By: #### C BC #### [facility] [address] [place] [address] Dr. Roni Esquivel PLT 274 103/ul Normal 150-450 [facility] Comment on above: Performed By: #### C BC #### [facility] [address] [place] [address] Dr. Roni Esquivel RBC 4.53 106/ul Normal 4.20-5.40 [facility] Comment on above: Performed By: #### C BC #### [facility] [address] [place] [address] Dr. Roni Esquivel WBC 6.3 103/ul Normal 4.0-11.0 [facility] Comment on above: Performed By: #### C BC #### [facility] [address] [place] [address] Dr. Roni Esquivel GLYCOHEMOGLOBIN A1Con 2021 ADA RECOMMENDATION SEE BELOW Normal [facility] Comment on above: Result Comment: ADA RECOMMENDED LIMIT 4.0 - 6.0 ADA THERAPEUTIC TARGET < 7.0 ACTION SUGGESTED > 7.0 Performed By: #### A 1C #### [facility] [address] [place] [address] Dr. Roni Esquivel Glucose [Mass/Vol] 114 mg/dL Normal [facility] Comment on above: Performed By: #### A 1C #### [facility] [address] [address] [address] Roni Esquivel HbA1c (Bld) [Mass fraction] 5.6 % Normal 4.5-6.2 [facility] Comment on above: Performed By: #### A 1C #### [facility] [address] [address] [address] Roni Esquivel LIPID PROFILEon 11-17-2021 CHOL-HDL RATIO NORM SEE BELOW Normal [facility] Comment on above: Result Comment: 3.3 - 4.4 LOW RISK 4.4 - 7.1 AVERAGE RISK 7.1 - 11.0 MODERATE RISK >11.0 HIGH RISK Performed By: #### T SH, CMP, LIPID #### [facility] [address] [address] [address] Roni Esquivel Cholesterol [Mass/Vol] 263 mg/dL Critically high <=200 [facility] Comment on above: Performed By: #### T SH, CMP, LIPID #### [facility] [address] [address] [address] Roni Esquivel Cholesterol in HDL [Mass/Vol] 42 mg/dL Normal 40-60 [facility] Comment on above: Performed By: #### T SH, CMP, LIPID #### [facility] [address] [address] [address] Roni Esquivel Cholesterol in LDL [Mass/Vol] 202.2 mg/dL Normal [facility] Comment on above: Performed By: #### T SH, CMP, LIPID #### [facility] [address] [address] [address] Roni Esquivel Cholesterol.total/Cho lesterol in HDL [Mass ratio] 6.3 {ratio} Normal [facility] Comment on above: Performed By: #### T SH, CMP, LIPID #### [facility] [address] [address] [address] Roni Esquivel HDL NORMAL > or = 60 mg/dl - LO W CARDIOVASCULAR RISK <40 mg/dl - HIGH CARDIOVASCULAR RISK Normal [facility] Comment on above: Performed By: #### T SH, CMP, LIPID #### [facility] [address] [address] [address] Roni Esquivel LDL CALC NORMAL SEE BELOW Normal [facility] Comment on above: Result Comment: <100 mg/dl OPTIMAL 100 - 129 mg/dl NEAR OR ABOVE OPTIMAL 130 - 159 mg/dl BORDERLINE HIGH 160 - 189 mg/dl HIGH >190 mg/dl VERY HIGH Performed By: #### T SH, CMP, LIPID #### [facility] [address] [address] [address] Roni Esquivel Triglyceride [Mass/Vol] 94 mg/dL Normal <=150 [facility] Comment on above: Performed By: #### T MISSY, CMP, LIPID #### [facility] [address] [address] [address] Roni Esquievl VLDL CALC 18.8 mg/dL Normal [facility] Comment on above: Performed By: #### T MISSY CMP, LIPID #### [facility] [address] [address] [address] Roni Esquivel PROF 14(COMP METB)on 022 Albumin [Mass/Vol] 3.7 g/dL Normal 3.4-5.0 [facility] Comment on above: Performed By: #### T MISSY CMP, LIPID #### [facility] [address] [place] [address] Dr. Roni Esquivel Albumin/Globulin [Mass ratio] 1.1 {ratio} Normal [facility] Comment on above: Performed By: #### T SH, CMP, LIPID #### [facility] [address] [place] [address] Dr. Roni Esquivel ALP [Catalytic activity/Vol] 108 U/L Normal 46-116 [facility] Comment on above: Performed By: #### T SH, CMP, LIPID #### [facility] [address] [place] [address] Dr. Roni Esquivel ALT [Catalytic activity/Vol] 19 U/L Normal 14-59 [facility] Comment on above: Performed By: #### T SH, CMP, LIPID #### [facility] [address] [address] [address] Roni Esquivel Anion gap [Moles/Vol] 9.1 mmol/L Normal [facility] Comment on above: Performed By: #### T SH, CMP, LIPID #### [facility] [address] [address] [address] Roni Esquivel AST [Catalytic activity/Vol] 20 U/L Normal 15-37 [facility] Comment on above: Performed By: #### T SH, CMP, LIPID #### [facility] [address] [place] [address] Dr. Roni Esquivel Bilirubin [Mass/Vol] 0.3 mg/dL Normal 0.2-1.0 [facility] Comment on above: Performed By: #### T SH, CMP, LIPID #### [facility] [address] [place] [address] Dr. Roni Esquivel Calcium [Mass/Vol] 9.1 mg/dL Normal 8.5-10.1 [facility] Comment on above: Performed By: #### T SH, CMP, LIPID #### [facility] [address] [address] [address] Roni Esquivel Chloride [Moles/Vol] 103 mmol/L Normal 98-107 [facility] Comment on above: Performed By: #### T SH, CMP, LIPID #### [facility] [address] [address] [address] Roni Esquivel CO2 [Moles/Vol] 31.4 mmol/L Normal 21.0-32.0 [facility] Comment on above: Performed By: #### T SH, CMP, LIPID #### [facility] [address] [place] [address] Dr. Roni Esquivel Creatinine [Mass/Vol] 1.03 mg/dL Critically high 0.55-1.02 [facility] Comment on above: Performed By: #### T SH, CMP, LIPID #### [facility] [address] [place] [address] Dr. Roni Esquivel EGFR-AF CZECH >60 Normal >=60 [facility] Comment on above: Performed By: #### T SH, CMP, LIPID #### [facility] [address] [address] [address] Roni Esquivel EGFR-NON AF CZECH 55 mL/min/1.73m2 Critically low >=60 [facility] Comment on above: Performed By: #### T SH, CMP, LIPID #### [facility] [address] [address] [address] Roni Esquivel Globulin (S) [Mass/Vol] 3.4 g/dL Normal [facility] Comment on above: Performed By: #### T SH, CMP, LIPID #### [facility] [address] [address] [address] Roni Esquivel Glucose [Mass/Vol] 92 mg/dL Normal 74-106 [facility] Comment on above: Performed By: #### T SH, CMP, LIPID #### [facility] [address] [address] [address] Roni Esquivel Potassium [Moles/Vol] 4.5 mmol/L Normal 3.5-5.1 [facility] Comment on above: Performed By: #### T SH, CMP, LIPID #### [facility] [address] [address] [address] Roni Esquivel Protein [Mass/Vol] 7.1 g/dL Normal 6.4-8.2 [facility] Comment on above: Performed By: #### T SH, CMP, LIPID #### [facility] [address] [address] [address] Roni Esquivel Sodium [Moles/Vol] 139 mmol/L Normal 136-145 [facility] Comment on above: Performed By: #### T SH, CMP, LIPID #### [facility] [address] [address] [address] Roni Esquivel Urea nitrogen [Mass/Vol] 16.0 mg/dL Normal 7.0-18.0 [facility] Comment on above: Performed By: #### T SH, CMP, LIPID #### [facility] [address] [address] [address] Roni Esquivel Urea nitrogen/Creatinine [Mass ratio] 15.5 mg/mg Normal [facility] Comment on above: Performed By: #### T SH, CMP, LIPID #### [facility] [address] [place] [address] Dr. Roni Esquivel TSHon 11-17-2021 TSH 1.139 uIU/mL Normal 0.358-3.740 [facility] Comment on above: Performed By: #### T SH, CMP, LIPID #### [facility] [address] [place] [address] Dr. Roni Esquivel PAP ACOG PANEL 2: 30 to 65on 07-27-2021 . . Normal [facility] Comment on above: Result Comment: Perf ormed at: WB Performed By: #### [id number] #### [facility] [address] [place] [address] Dr. Roni Esquivel Age Gdln ACOG Testing - [facility] Comment on above: Performed By: #### [id number] #### [facility] [address] [place] [address] Dr. Roni Esquivel DIAGNOSIS: Comment Normal [facility] Comment on above: Result Comment: NEGA TIVE FOR INTRAEPITHELIAL LESION OR MALIGNANCY. Performed at: WB Performed By: #### [id number] #### [facility] [address] [place] [address] Dr. Roni Esquivel HPV Aptima Negative Normal Negative [facility] Comment on above: Result Comment: This nucleic acid amplification test detects fourteen high-risk HPV types (16,18,31,33,35,39,45,51,52,56,58,59,66,68) without differentiation. Performed at: =G Performed By: #### [id number] #### [facility] [address] [place] [address] Dr. Roni Esquivel Methodology: Comment Normal [facility] Comment on above: Result Comment: This liquid based ThinPrep(R) pap test was screened with the use of an image guided system. Performed at: WB Performed By: #### [id number] #### [facility] [address] [place] [address] Dr. Roni Esquivel Note: Comment Normal [facility] Comment on above: Result Comment: The Pap smear is a screening test designed to aid in the detection of premalignant and malignant conditions of the uterine cervix. It is not a diagnostic procedure and should not be used as the sole means of detecting cervical cancer. Both false-positive and false-negative reports do occur. . Performed at: WB Performed By: #### [id number] #### [facility] [address] [address] [address] Roni Esquivel Performed by: Comment Normal [facility] Comment on above: Result Comment: Su Chalres, Etl Consultant (ASCP) Performed at: WB Performed By: #### [id number] #### [facility] [address] [address] [address] Roni Esquivel Specimen adequacy: Comment Normal [facility] Comment on above: Result Comment: Sati sfactory for evaluation. Endocervical and/or squamous metaplastic cells (endocervical component) are present. Performed at: WB Performed By: #### [id number] #### [facility] [address] [address] [address] Roni Esquivel MG MAMM SCREEN 3D CARSON CADon 07-07-2021 MG MAMM SCREEN 3D CARSON CAD Patient: JACKIE CAICEDO Exam Date: 07/07/2021 : 1965 Gender:F Ordering : DR TOAN BROWN . Admission #: [id number] Family : Order #: [id number] CLICK HERE TO VIEW EXAM RADIOLOGY REPORT [...] lung cancer at age 65. LOCATION: [facility] BREAST COMPOSITION: Heterogeneously dense,which may obscure small [...] Muñiz MD on 07/07/2021 at 07:56 Normal [facility] Encounters Encounter Date Encounter Type Care Provider Facility Start: 12-27-2023 End: 12-27-2023 Office outpatient new 30 minutes Latoya Cheek APRN-CAUSE ANALYST Work Phone: [facility] Comment on above: Encounter for colono scopy in patient with family history of colon cancer (Primary Dx) Start: 12-27-2023 End: 12-27-2023 ambulatory [facility] Start: 09-13-2023 End: 09-13-2023 ambulatory TOAN BROWN Not Available Start: 06-24-[address] MARCOS PERALTA Facili ty:[facility] Start: 06-16-2022 End: 06-17-2022 ambulatory NARENDRANATH LAKSHMIPATHY . Facility:[facility] Start: 12-31-2021 End: 01-01-[address] GUTIERREZ LISTED REQUEST Facility:[facility] Start: 11-19-2021 Encounter for genera l adult medical examination without abnormal findings DR MARCOS PERALTA [facility] Start: 11-17-2021 End: 11-18-[address] MARCOS PERALTA Facility:[facility] Start: 11-17-2021 End: 11-18-2021 Encounter for general adult medical examination without abnormal findings DR MARCOS PERALTA Facility:[facility] Start: 07-21-2021 End: 07-21-[address] TOAN BROWN . Facility:[facility] Start: 07-07-2021 End: 07-08-[address] TOAN BROWN . 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 ANALYST Work Phone: Start: 08-08-2018 Colonoscopy Latoya medina [employer] CERTIFIED INTERNETWORK EXPERT-CAUSE ANALYST Work Phone: Plan of Treatment Date Care Activity Detail Author Start: 09-12-2026 Screening for malign ant neoplasm of cervix Pap Smear [facility] Start: 12-26-2024 Tobacco Screening Tobacco Screening [facility] Start: 11-26-2023 COVID-19 Vaccine () COVID-19 Vaccine ( season) [facility] Start: 11-26-2023 Influenza vaccination Influenza Vacc ine [facility] Start: 08-09-2023 Screening for malign ant neoplasm of colon Colonoscopy [facility] Start: 11-09-2015 Administration of varicella zoster vaccine Zoster (Shingles) Vaccine (1 of 2) [facility] Start: 1984 DTaP,Tdap and Td Vac cines (1 - Tdap) DTaP,Tdap and Td Vaccines (1 - Tdap) [facility] Start: 11-09-1983 Adult BMI Screening Adult BMI Screen ing [facility] Start: 1977 Depression Screening Depression Scre ening [facility] End: 12-26-2024 Colonoscopy Colonoscopy GI Routine Encounter For Colonoscopy In Patient With Family History Of Colon Cancer 1 Occurrences starting 12/27/2023 until 12/26/2024 [facility] Work Phone: Comment on above: 1 Occurrences starti ng 12/27/2023 until 12/26/2024 Payers Date Payer Category Payer Unknown ALEXANDR MASON SS (PPO) [id number] 2022-Present [phone] [address] [place] [address] [id number] 2022 Unknown [id number] 2019 Unknown [id number] 1965 Unknown [id number] 1965 Unknown [id number] 1965 Unknown [id number] 1965 Unknown [id number] 1965 Unknown [id number] 1965 Unknown [id number] 1965 Unknown [id number] 1959 Self-pay Unknown [id number] Social History Date Type Detail Facility Start: 05-29-[address] [facility] Never smoked tobacco [facility] Start: 05-29-2017 Tobacco use and exposure Smokeless tobacco non-user [facility] Start: 12-27-2023 Alcoholic beverage intake Current non-drinker of alcohol (finding) [facility] Start: 05-07-2020 End: 12-27-2023 History of Social function [facility] Start: 05-07-2020 End: 12-27-2023 Tobacco use panel [facility] Childcare Unknown [facility] Start: 1965 Sex assigned at Not on file P [facility] History of Present illness Narrative 12-27-2023 Latoya Cheek, [employer] CERTIFIED INTERNETWORK EXPERT-CAUSE ANALYST - 12/27/2023 12:00 PM EDT Note Date & Type Note Facility 12-27-2023 History of Presen t illness Narrative Chief Complaint: Family history of colon cancer History of Present Illness Jackie Caicedo is a 58 y.o. female who presents to the office for surveillance colonoscopy. There is a family history of colon cancer in her mother, maternal grandmother and maternal grandfather. Her last colonoscopy was in 2019 and was normal. She was tested for khoury syndrome and was negative. She denies diarrhea, constipation, abdominal pain, melena, hematochezia, unexplained weight loss. Review of Systems Constitutional: Negative for fever and unexpected weight change. HENT: Negative for trouble swallowing. Respiratory: Negative for shortness of breath. Cardiovascular: Negative for chest pain. Gastrointestinal: Negative for nausea, vomiting, abdominal pain, diarrhea, constipation, blood in stool and black tarry stool. Genitourinary: Negative for dysuria and difficulty urinating. Musculoskeletal: Negative for gait problem. Skin: Negative for rash and wound. Neurological: Negative for dizziness, weakness and light-headedness. Hematological: Does not bruise/bleed easily. Psychiatric/Behavioral: Negative for confusion. Past Medical History: Diagnosis Date High cholesterol Past Surgical History: Procedure Laterality Date BREAST BIOPSY CHOLECYSTECTOMY COLONOSCOPY DILATION AND CURETTAGE OF UTERUS 2009 ESOPHAGOGASTRODUODENOSCOPY HYSTERECTOMY TRIGGER FINGER RELEASE Bilateral bilateral thumb TUBAL LIGATION No Known Allergies Current Outpatient Medications: atorvastatin (LIPITOR) 40 mg tablet, Take 1 tablet (40 mg total) by mouth in the morning., Disp: , Rfl: peg 3350-sod sulf,bldn-vus-uwp 178.7-7.3-0.5 gram recon soln, Take 1 kit by mouth once daily for 1 dose. Please see instructional sheet given by physicians office., Disp: 1 each, Rfl: 0 Social History Socioeconomic History Marital status: Spouse name: Not on file Number of children: Not on file Years of education: Not on file Highest education level: Not on file Occupational History Not on file Tobacco Use Smoking status: Never Smokeless tobacco: Never Vaping Use Vaping status: Never Used Substance and Sexual Activity Alcohol use: No Drug use: Never Sexual activity: Defer Other Topics Concern Not on file Social History Narrative Not on file Social Determinants of Health Financial Resource Strain: Not on file Food Insecurity: Not on file Transportation Needs: Not on file Physical Activity: Not on file Stress: Not on file Social Connections: Not on file Interpersonal Safety: Not on file Housing Instability: Not on file Family History Problem Relation Age of Onset Colon cancer Mother Stomach cancer Mother Endometrial cancer Sister Breast cancer Paternal Aunt Breast cancer Paternal Aunt Colon cancer Maternal Grandmother Colon cancer Maternal Grandfather Objective Physical Exam Constitutional: General: She is not in acute distress. Appearance: Normal appearance. She is not ill-appearing. HENT: Head: Normocephalic and atraumatic. Mouth/Throat: Mouth: Mucous membranes are moist. Eyes: Pupils: Pupils are equal, round, and reactive to light. Cardiovascular: Rate and Rhythm: Normal rate. Pulmonary: Effort: Pulmonary effort is normal. No respiratory distress. Abdominal: General: There is no distension. Musculoskeletal: General: Normal range of motion. Skin: General: Skin is warm and dry. Neurological: Mental Status: She is alert and oriented to person, place, and time. Mental status is at baseline. Vital Signs: There were no vitals taken for this visit. Respiratory Source: No data recorded Admission Weight: Labs No results found for: WBC , HGB , HCT , MCV , PLT No results found for: GLU , CALCIUM , NA , K , CO2 , CL , BUN , CREATININE No results found for: AMYLASE No results found for: LIPASE No results found for: ALT , AST , GGT , ALKPHOS , LABBILI No results found for: INR , PROTIME Assessment Jackie Caicedo is a 58 y.o.female who presents to the office for colonoscopy due to family history of colon cancer. Plan Colonoscopy with possible biopsy and/or polypectomy. Risks, benefits, and alternatives discussed with patient. Educated on bowel evacuation preparation. Patient verbalizes understanding and wishes to proceed. Evaluation included: Preparing to see the patient (e.g., review of tests) Obtaining and/or reviewing separately obtained history Performing a medically appropriate examination and/or evaluation Counseling and educating the patient/family/caregiver Referring and communicating with other health md do resident urgent care Encounter for colonoscopy in patient with family history of colon cancer [Z12.11, Z80.0] LATOYA CHEEK, [employer] CERTIFIED INTERNETWORK EXPERT-CAUSE ANALYST [facility] [place] This note was created with the assistance of a speech recognition program. While intending to generate a timely document that accurately reflects the content of the visit, no guarantee can be provided that every grammatical or spelling mistake has been or will be identified or corrected. Thank you for your understanding. Video Visit via Real-time Synchronous Audiovisual Provider Location: [facility] [address] [place] [id number] Patient Location: Other Video Visit Consent Statement: I discussed risks, benefits, and alternatives of a real-time synchronous audiovisual consultation with the patient (and any accompanying persons) including the risks that the patient's personal health details and medical records will be discussed over real-time, synchronous, interactive video/audio/telecommunication technology, the visit will not be recorded without the express consent of both the provider and the patient, and that there are some limitations compared to [id number]-[id number] evaluations. The patient consented to the presence of additional virtual and/or in-person participants. We elected to proceed. ANNA Lyon 12/27/23 1209 documented in this encounter [employer] Evaluation note Note Date & Type Note Facility Evaluation note Diagnosis Encounter for colonoscopy in patient with family history of colon cancer- Primary documented in this encounter [employer] Instructions Note Date & Type Note Facility Instructions Not on filedocumented in this en counter [employer] Summary Purpose Family History No Family History Records FoundNo Family History Records FoundNo Family History Records Found Advance Directives No Advanced Directives Records FoundNo Advanced Directives Records FoundNo Advanced Directives Records Found Reason for Referral Specialty Diagnoses / Procedures Referred By Kaitlyn davis Referred To Contact Diagnoses Encounter for colonoscopy in patient with family history of colon cancer Latoya Cheek APRN-CNP [address] [place] [address] Referral ID Status Reason Start Date Expiration Date Visits Re quested Visits Authorized [id number] Closed 1 1 Additional Source Comments INFORMATION SOURCE (unrecogn ized section and content) DATE CREATED AUTHOR 06/30/2022 [facility] DATE CREATED AUTHOR AUTHOR'S ORGANIZ ATION 09/15/2023 [facility] EPIC DATE CREATED AUTHOR AUTHOR'S ORGANIZ ATION 12/29/2023 [facility] Reason for Visit (unrecogniz ed section and content) Reason Comments Colon Cancer Screening 5 year recall Care Teams (unrecognized sec tion and content) 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 [facility] provides no warranty or guarantee of the accuracy or completeness of information in this document.
== END 2024-01-23 14:31 | disposition home or self-care (01) ==
LOC: PST 14:30
PROVIDERS: PCP Internal Medicine; Visit Provider Surgery
DX: Z01.818 Encounter for other preprocedural examination (principal); Z80.0 Family history of malignant neoplasm of digestive organs

== ENCOUNTER 2024-01-31 06:28 | Day surgery (SDC) | payer BC, SELFPAY ==
[2024-01-31 06:30] VITALS: BP 117/73; PULSE 86; TEMP 35.7; O2SAT 96; BMI 27.9
--- OUTSIDE RECORDS SUMMARY | 2024-01-31 06:31 | XMS_ITS | CCD ---
Author Organization [facility] Care Team Providers Care Seed Cutter Name Role Phone DIEGO, DR GUTIERREZ Primary [...] Unavailable BALL, DR GUTIERREZ Primary Care Unavailable TOAN BROWN Attending Unavailable Marcos Peralta DO Primary Care Provider LATOYA CHEEK Attending MARCOS Reilly Referring MARCOS Reilly Primary Care Unavailable LATOYA CHEEK Attending Unavailable MARCOS PERALTA Referring Unavailable MARCOS PERALTA Primary Care Unavailable Medications Current Medications Medication Drug Class(es) Dates Sig (Normalized) Sig (Original) atorvastatin 40 mg oral tablet (2 sources) HMG-CoA Reductase Inhibitor take 1 tablet by mouth in the morning atorvastatin (LIPITOR) 40 mg tablet Take 1 tablet (40 mg total) by mouth in the morning. Active peg 3350-sod sulf,kalr-wej-fjf 178.7-7.3-0.5 gram recon soln (1 source) Start: 12-27-2023 End: 12-28-2023 peg 3350-sod sulf,ybxl-mkd-peb 178.7-7.3-0.5 gram recon soln Indications: Encounter for [...] conditions (not mental disorders or infectious disease) (11 sources) Encounter for screening for malignant neoplasm [...] AUTUMN QUIÑONEZ Date: 2022-06-16 19:00 Normal [facility] CBC AUTO DIFFon 12-31-2021 BASO # 0.0 103/ul Normal 0.0-0.1 [facility] Comment on above: Performed By: #### D ATCBC #### [facility] [address] [address] [address] Roni Esquivel Basophils/100 WBC (Bld) 0.4 % Normal 0.2-2.0 [facility] Comment on above: Performed By: #### D ATCBC #### [facility] [address] [address] [address] Roni Esquivel EO # 0.1 103/ul Normal 0.0-0.7 [facility] Comment on above: Performed By: #### D ATCBC #### [facility] [address] [place] [address] Dr. Roni Esquivel Eosinophils/100 WBC (Bld) 1.9 % Normal 0.9-7.0 [facility] Comment on above: Performed By: #### D ATCBC #### [facility] [address] [place] [address] Dr. Roni Esquivel Erythrocyte distribution width (RBC) [Ratio] 12.2 % Normal 11.0-15.0 [facility] Comment on above: Performed By: #### D ATCBC #### [facility] [address] [place] [address] Dr. Roni Esquivel Hematocrit (Bld) [Volume fraction] 37.1 % Normal 36.0-48.0 [facility] Comment on above: Performed By: #### D ATCBC #### [facility] [address] [place] [address] Dr. Roni Esquivel Hemoglobin (Bld) [Mass/Vol] 11.9 g/dL Critically low 12.0-16.0 [facility] Comment on above: Performed By: #### D ATCBC #### [facility] [address] [place] [address] Dr. Roni Esquivel IG # 0.01 10e3/ul Normal 0.00-0.03 [facility] Comment on above: Performed By: #### D ATCBC #### [facility] [address] [place] [address] Dr. Roni Esquivel IG % 0.2 % Normal 0.0-0.5 [facility] Comment on above: Performed By: #### D ATCBC #### [facility] [address] [place] [address] Dr. Roni Esquivel LYMPH # 2.2 103/ul Normal 1.2-3.8 [facility] Comment on above: Performed By: #### D ATCBC #### [facility] [address] [place] [address] Dr. Roni Esquivel Lymphocytes/100 WBC (Bld) 41.5 % Normal 20.5-60.0 [facility] Comment on above: Performed By: #### D ATCBC #### [facility] [address] [place] [address] Dr. Roni Esquivel MCH (RBC) [Entitic mass] 28.6 pg Normal 26.7-34.0 [facility] Comment on above: Performed By: #### D ATCBC #### [facility] [address] [place] [address] Dr. Roni Esquivel MCHC (RBC) [Mass/Vol] 32.1 g/dL Normal 29.9-35.2 [facility] Comment on above: Performed By: #### D ATCBC #### [facility] [address] [place] [address] Dr. Roni Esquivel MCV (RBC) [Entitic vol] 89.2 fL Normal 81.0-99.0 [facility] Comment on above: Performed By: #### D ATCBC #### [facility] [address] [place] [address] Dr. Roni Esquivel MONO # 0.4 103/ul Normal 0.3-0.8 [facility] Comment on above: Performed By: #### D ATCBC #### [facility] [address] [place] [address] Dr. Roni Esquivel Monocytes/100 WBC (Bld) 7.7 % Normal 1.7-12.0 [facility] Comment on above: Performed By: #### D ATCBC #### [facility] [address] [place] [address] Dr. Roni Esquivel NEUT # 2.6 103/ul Normal 1.4-6.5 [facility] Comment on above: Performed By: #### D ATCBC #### [facility] [address] [place] [address] Dr. Roni Esquivel Neutrophils/100 WBC (Bld) 48.3 % Normal 43.0-75.0 [facility] Comment on above: Performed By: #### D ATCBC #### [facility] [address] [address] [address] Roni Esquivel Platelet mean volume (Bld) [Entitic vol] 8.7 fL Critically low 9.5-13.5 [facility] Comment on above: Performed By: #### D ATCBC #### [facility] [address] [address] [address] Roni Esquivel PLT 264 103/ul Normal 150-450 [facility] Comment on above: Performed By: #### D ATCBC #### [facility] [address] [address] [address] Roni Esquivel RBC 4.16 106/ul Critically low 4.20-5.40 [facility] Comment on above: Performed By: #### D ATCBC #### [facility] [address] [place] [address] Dr. Roni Esquivel WBC 5.4 103/ul Normal 4.0-11.0 [facility] Comment on above: Performed By: #### D ATCBC #### [facility] [address] [place] [address] Dr. Roni Esquivel HIEN- BMP WITH LIPIDon 2021 Anion gap [Moles/Vol] 8.4 mmol/L Normal [facility] Comment on above: Performed By: #### D ATBMP #### [facility] [address] [address] [address] Roni Esquivel Calcium [Mass/Vol] 9.4 mg/dL Normal 8.5-10.1 [facility] Comment on above: Performed By: #### D ATBMP #### [facility] [address] [address] [address] Roni Esquivel Chloride [Moles/Vol] 106 mmol/L Normal 98-107 [facility] Comment on above: Performed By: #### D ATBMP #### [facility] [address] [address] [address] Roni Esquivel Cholesterol [Mass/Vol] 173 mg/dL Normal <=200 [facility] Comment on above: Performed By: #### D ATBMP #### [facility] [address] [address] [address] Roni Esquivel Cholesterol in HDL [Mass/Vol] 47 mg/dL Normal 40-60 [facility] Comment on above: Performed By: #### D ATBMP #### [facility] [address] [address] [address] Roni Esquivel Cholesterol in LDL [Mass/Vol] 108.6 mg/dL Normal [facility] Comment on above: Performed By: #### D ATBMP #### [facility] [address] [address] [address] Roni Esquivel CO2 [Moles/Vol] 30.0 mmol/L Normal 21.0-32.0 [facility] Comment on above: Performed By: #### D ATBMP #### [facility] [address] [address] [address] Roni Esquivel Creatinine [Mass/Vol] 1.15 mg/dL Critically high 0.55-1.02 [facility] Comment on above: Performed By: #### D ATBMP #### [facility] [address] [address] [address] Roni Esquivel EGFR-AF [place] 59 mL/min/1.73m2 Critically low >=60 [facility] Comment on above: Performed By: #### D ATBMP #### [facility] [address] [address] [address] Roni Esquivel EGFR-NON AF [place] 49 mL/min/1.73m2 Critically low >=60 [facility] Comment on above: Performed By: #### D ATBMP #### [facility] [address] [address] [address] Roni Esquivel Glucose [Mass/Vol] 102 mg/dL Normal 74-106 [facility] Comment on above: Performed By: #### D ATBMP #### [facility] [address] [address] [address] Roni Esquivel HDL NORMAL > or = 60 mg/dl - LO W CARDIOVASCULAR RISK <40 mg/dl - HIGH CARDIOVASCULAR RISK Normal [facility] Comment on above: Performed By: #### D ATBMP #### [facility] [address] [address] [address] Roni Esquivel LDL CALC NORMAL SEE BELOW Normal [facility] Comment on above: Result Comment: <100 mg/dl OPTIMAL 100 - 129 mg/dl NEAR OR ABOVE OPTIMAL 130 - 159 mg/dl BORDERLINE HIGH 160 - 189 mg/dl HIGH >190 mg/dl VERY HIGH Performed By: #### D ATBMP #### [facility] [address] [address] [address] Roni Esquivel Potassium [Moles/Vol] 4.4 mmol/L Normal 3.5-5.1 [facility] Comment on above: Performed By: #### D ATBMP #### [facility] [address] [address] [address] Roni Esquivel Sodium [Moles/Vol] 140 mmol/L Normal 136-145 [facility] Comment on above: Performed By: #### D ATBMP #### [facility] [address] [address] [address] Roni Esquivel Triglyceride [Mass/Vol] 87 mg/dL Normal <=150 [facility] Comment on above: Performed By: #### D ATBMP #### [facility] [address] [address] [address] Roni Esquivel Urea nitrogen [Mass/Vol] 17.0 mg/dL Normal 7.0-18.0 [facility] Comment on above: Performed By: #### D ATBMP #### [facility] [address] [address] [address] Roni Esquivel Urea nitrogen/Creatinine [Mass ratio] 14.8 mg/mg Normal [facility] Comment on above: Performed By: #### D ATBMP #### [facility] [address] [address] [address] Roni Esquivel VLDL CALC 17.4 mg/dL Normal [facility] Comment on above: Performed By: #### D ATBMP #### [facility] [address] [place] [address] Dr. Roni Esquivel CBC AUTO DIFFon 11-17-2021 BASO # 0.0 103/ul Normal 0.0-0.1 [facility] Comment on above: Performed By: #### C BC #### [facility] [address] [place] [address] Dr. Roni Esquivel Basophils/100 WBC (Bld) 0.3 % Normal 0.2-2.0 [facility] Comment on above: Performed By: #### C BC #### [facility] [address] [place] [address] Dr. Roni Esquivel EO # 0.1 103/ul Normal 0.0-0.7 [facility] Comment on above: Performed By: #### C BC #### [facility] [address] [place] [address] Dr. Roni Esquivel Eosinophils/100 WBC (Bld) 1.3 % Normal 0.9-7.0 [facility] Comment on above: Performed By: #### C BC #### [facility] [address] [place] [address] Dr. Roni Esquivel Erythrocyte distribution width (RBC) [Ratio] 11.9 % Normal 11.0-15.0 [facility] Comment on above: Performed By: #### C BC #### [facility] [address] [place] [address] Dr. Roni Esquivel Hematocrit (Bld) [Volume fraction] 40.3 % Normal 36.0-48.0 [facility] Comment on above: Performed By: #### C BC #### [facility] [address] [place] [address] Dr. Roni Esquivel Hemoglobin (Bld) [Mass/Vol] 12.6 g/dL Normal 12.0-16.0 [facility] Comment on above: Performed By: #### C BC #### [facility] [address] [place] [address] Dr. Roni Esquivel IG # 0.01 10e3/ul Normal 0.00-0.03 [facility] Comment on above: Performed By: #### C BC #### [facility] [address] [place] [address] Dr. Roni Esquivel IG % 0.2 % Normal 0.0-0.5 [facility] Comment on above: Performed By: #### C BC #### [facility] [address] [place] [address] Dr. Roni Esquivel LYMPH # 2.0 103/ul Normal 1.2-3.8 [facility] Comment on above: Performed By: #### C BC #### [facility] [address] [place] [address] Dr. Roni Esquivel Lymphocytes/100 WBC (Bld) 32.4 % Normal 20.5-60.0 [facility] Comment on above: Performed By: #### C BC #### [facility] [address] [place] [address] Dr. Roni Esquivel MANUAL DIFF REQ NO Normal [facility] Comment on above: Performed By: #### C BC #### [facility] [address] [place] [address] Dr. Roni Esquivel MCH (RBC) [Entitic mass] 27.8 pg Normal 26.7-34.0 [facility] Comment on above: Performed By: #### C BC #### [facility] [address] [place] [address] Dr. Roni Esquivel MCHC (RBC) [Mass/Vol] 31.3 g/dL Normal 29.9-35.2 [facility] Comment on above: Performed By: #### C BC #### [facility] [address] [place] [address] Dr. Roni Esquivel MCV (RBC) [Entitic vol] 89.0 fL Normal 81.0-99.0 [facility] Comment on above: Performed By: #### C BC #### [facility] [address] [place] [address] Dr. Roni Esquivel MONO # 0.6 103/ul Normal 0.3-0.8 [facility] Comment on above: Performed By: #### C BC #### [facility] [address] [place] [address] Dr. Roni Esquivel Monocytes/100 WBC (Bld) 9.2 % Normal 1.7-12.0 [facility] Comment on above: Performed By: #### C BC #### [facility] [address] [place] [address] Dr. Roni Esquivel NEUT # 3.6 103/ul Normal 1.4-6.5 [facility] Comment on above: Performed By: #### C BC #### [facility] [address] [place] [address] Dr. Roni Esquivel Neutrophils/100 WBC (Bld) 56.6 % Normal 43.0-75.0 [facility] Comment on above: Performed By: #### C BC #### [facility] [address] [place] [address] Dr. Roni Esquivel Platelet mean volume (Bld) [Entitic vol] 8.8 fL Critically low 9.5-13.5 [facility] Comment on above: Performed By: #### C BC #### [facility] [address] [place] [address] Dr. Roni Esquivel PLT 274 103/ul Normal 150-450 [facility] Comment on above: Performed By: #### C BC #### [facility] [address] [place] [address] Dr. Roni Esquivel RBC 4.53 106/ul Normal 4.20-5.40 [facility] Comment on above: Performed By: #### C BC #### [facility] [address] [place] [address] Dr. Roni Esquivel WBC 6.3 103/ul Normal 4.0-11.0 [facility] Comment on above: Performed By: #### C BC #### [facility] [address] [place] [address] Dr. Roni Esquivel GLYCOHEMOGLOBIN A1Con 2021 ADA RECOMMENDATION SEE BELOW Normal [facility] Comment on above: Result Comment: ADA RECOMMENDED LIMIT 4.0 - 6.0 ADA THERAPEUTIC TARGET < 7.0 ACTION SUGGESTED > 7.0 Performed By: #### A 1C #### [facility] [address] [address] [address] Roni Esquivel Glucose [Mass/Vol] 114 mg/dL Normal [facility] Comment on above: Performed By: #### A 1C #### [facility] [address] [address] [address] Roni Esquivel HbA1c (Bld) [Mass fraction] 5.6 % Normal 4.5-6.2 [facility] Comment on above: Performed By: #### A 1C #### [facility] [address] [address] [address] Roni Esquivel LIPID PROFILEon 11-17-2021 CHOL-HDL RATIO NORM SEE BELOW Normal [facility] Comment on above: Result Comment: 3.3 - 4.4 LOW RISK 4.4 - 7.1 AVERAGE RISK 7.1 - 11.0 MODERATE RISK >11.0 HIGH RISK Performed By: #### T SH, CMP, LIPID #### [facility] [address] [address] [address] Roni Esquivel Cholesterol [Mass/Vol] 263 mg/dL Critically high <=200 [facility] Comment on above: Performed By: #### T SH, CMP, LIPID #### [facility] [address] [address] [address] Roni Esquivel Cholesterol in HDL [Mass/Vol] 42 mg/dL Normal 40-60 [facility] Comment on above: Performed By: #### T SH, CMP, LIPID #### [facility] [address] [address] [address] Roni Esquivel Cholesterol in LDL [Mass/Vol] 202.2 mg/dL Normal [facility] Comment on above: Performed By: #### T SH, CMP, LIPID #### [facility] [address] [id number] Roni Esquivel Cholesterol.total/Cho lesterol in HDL [Mass ratio] 6.3 {ratio} Normal [facility] Comment on above: Performed By: #### T SH, CMP, LIPID #### [facility] [address] [address] [address] Roni Esquivel HDL NORMAL > or = 60 mg/dl - LO W CARDIOVASCULAR RISK <40 mg/dl - HIGH CARDIOVASCULAR RISK Normal [facility] Comment on above: Performed By: #### T SH, CMP, LIPID #### [facility] [address] [address] [address] Roni Esquivel LDL CALC NORMAL SEE BELOW Normal [facility] Comment on above: Result Comment: <100 mg/dl OPTIMAL 100 - 129 mg/dl NEAR OR ABOVE OPTIMAL 130 - 159 mg/dl BORDERLINE HIGH 160 - 189 mg/dl HIGH >190 mg/dl VERY HIGH Performed By: #### T SH, CMP, LIPID #### [facility] [address] [address] [address] Roni Esquivel Triglyceride [Mass/Vol] 94 mg/dL Normal <=150 [facility] Comment on above: Performed By: #### T SH, CMP, LIPID #### [facility] [address] [address] [address] Roni Esquivel VLDL CALC 18.8 mg/dL Normal [facility] Comment on above: Performed By: #### T SH, CMP, LIPID #### [facility] [address] [address] [address] Roni Esquivel PROF 14(COMP METB)on 022 Albumin [Mass/Vol] 3.7 g/dL Normal 3.4-5.0 [facility] Comment on above: Performed By: #### T SH, CMP, LIPID #### [facility] [address] [address] [address] Roni Esquivel Albumin/Globulin [Mass ratio] 1.1 {ratio} Normal [facility] Comment on above: Performed By: #### T SH, CMP, LIPID #### [facility] [address] [address] [address] Roni Esquivel ALP [Catalytic activity/Vol] 108 U/L Normal 46-116 [facility] Comment on above: Performed By: #### T SH, CMP, LIPID #### [facility] [address] [address] [address] Roni Esquivel ALT [Catalytic activity/Vol] 19 U/L Normal 14-59 [facility] Comment on above: Performed By: #### T SH, CMP, LIPID #### [facility] [address] [address] [address] Roni Esquviel Anion gap [Moles/Vol] 9.1 mmol/L Normal [facility] Comment on above: Performed By: #### T SH, CMP, LIPID #### [facility] [address] [place] [address] Dr. Roni Esquivel AST [Catalytic activity/Vol] 20 U/L Normal 15-37 [facility] Comment on above: Performed By: #### T SH, CMP, LIPID #### [facility] [address] [address] [address] Roni Esquivel Bilirubin [Mass/Vol] 0.3 mg/dL Normal 0.2-1.0 [facility] Comment on above: Performed By: #### T SH, CMP, LIPID #### [facility] [address] [place] [address] Dr. Roni Esquivel Calcium [Mass/Vol] 9.1 mg/dL Normal 8.5-10.1 [facility] Comment on above: Performed By: #### T SH, CMP, LIPID #### [facility] [address] [place] [address] Dr. Roni Esquivel Chloride [Moles/Vol] 103 mmol/L Normal 98-107 [facility] Comment on above: Performed By: #### T SH, CMP, LIPID #### [facility] [address] [address] [address] Roni Esquivel CO2 [Moles/Vol] 31.4 mmol/L Normal 21.0-32.0 [facility] Comment on above: Performed By: #### T SH, CMP, LIPID #### [facility] [address] [place] [address] Dr. Roni Esquivel Creatinine [Mass/Vol] 1.03 mg/dL Critically high 0.55-1.02 [facility] Comment on above: Performed By: #### T SH, CMP, LIPID #### [facility] [address] [place] [address] Dr. Roni Esquivel EGFR-AF [place] >60 Normal >=60 [facility] Comment on above: Performed By: #### T SH, CMP, LIPID #### [facility] [address] [place] [address] Dr. Roni Esquivel EGFR-NON AF [place] 55 mL/min/1.73m2 Critically low >=60 [facility] Comment on above: Performed By: #### T SH, CMP, LIPID #### [facility] [address] [place] [address] Dr. Roni Esquivel Globulin (S) [Mass/Vol] 3.4 g/dL Normal [facility] Comment on above: Performed By: #### T SH, CMP, LIPID #### [facility] [address] [place] [address] Dr. Roni Esquivel Glucose [Mass/Vol] 92 mg/dL Normal 74-106 [facility] Comment on above: Performed By: #### T SH, CMP, LIPID #### [facility] [address] [place] [address] Dr. Roni Esquivel Potassium [Moles/Vol] 4.5 mmol/L Normal 3.5-5.1 [facility] Comment on above: Performed By: #### T SH, CMP, LIPID #### [facility] [address] [place] [address] Dr. Roni Esquivel Protein [Mass/Vol] 7.1 g/dL Normal 6.4-8.2 [facility] Comment on above: Performed By: #### T SH, CMP, LIPID #### [facility] [address] [place] [address] Dr. Roni Esquivel Sodium [Moles/Vol] 139 mmol/L Normal 136-145 [facility] Comment on above: Performed By: #### T SH, CMP, LIPID #### [facility] [address] [place] [address] Dr. Roni Esquivel Urea nitrogen [Mass/Vol] 16.0 mg/dL Normal 7.0-18.0 [facility] Comment on above: Performed By: #### T SH, CMP, LIPID #### [facility] [address] [address] [address] Roni Esquivel Urea nitrogen/Creatinine [Mass ratio] 15.5 mg/mg Normal [facility] Comment on above: Performed By: #### T SH, CMP, LIPID #### [facility] [address] [place] [id number] Dr. Roni Esquivel TSHon 11-17-2021 TSH 1.139 uIU/mL Normal 0.358-3.740 [facility] Comment on above: Performed By: #### T SH, CMP, LIPID #### [facility] [address] [place] [address] Dr. Roni Esquivel PAP ACOG PANEL 2: 30 to 65on 07-27-2021 . . Normal [facility] Comment on above: Result Comment: Perf ormed at: WB Performed By: #### [id number] #### [facility] [address] [place] [address] Dr. Roni Esquivel Age Gdln ACOG Testing - [facility] Comment on above: Performed By: #### [id number] #### [facility] [address] [place] [address] Dr. Roni Esquivel DIAGNOSIS: Comment Normal [facility] Comment on above: Result Comment: NEGA TIVE FOR INTRAEPITHELIAL LESION OR MALIGNANCY. Performed at: WB Performed By: #### [id number] #### [facility] [address] [place] [address] Dr. Roni Esquivel HPV Aptima Negative Normal Negative [facility] Comment on above: Result Comment: This nucleic acid amplification test detects fourteen high-risk HPV types (16,18,31,33,35,39,45,51,52,56,58,59,66,68) without differentiation. Performed at: =G Performed By: #### [id number] #### [facility] [address] [place] [address] Dr. Roni Esquivel Methodology: Comment Normal [facility] Comment on above: Result Comment: This liquid based ThinPrep(R) pap test was screened with the use of an image guided system. Performed at: WB Performed By: #### [id number] #### [facility] [address] [address] [address] Roni Esquivel Note: Comment Normal [facility] Comment on above: Result Comment: The Pap smear is a screening test designed to aid in the detection of premalignant and malignant conditions of the uterine cervix. It is not a diagnostic procedure and should not be used as the sole means of detecting cervical cancer. Both false-positive and false-negative reports do occur. . Performed at: WB Performed By: #### [id number] #### [facility] [address] [address] [address] Roni Esquivel Performed by: Comment Normal [facility] Comment on above: Result Comment: Su Charles, [employer] Generation (ASCP) Performed at: WB Performed By: #### [id number] #### [facility] [address] [address] [address] Roni Esquivel Specimen adequacy: Comment Normal [facility] Comment on above: Result Comment: Sati sfactory for evaluation. Endocervical and/or squamous metaplastic cells (endocervical component) are present. Performed at: WB Performed By: #### [id number] #### [facility] [address] [address] [address] Roni Esquivel MG MAMM SCREEN 3D CARSON CADon 07-07-2021 MG MAMM SCREEN 3D CARSON CAD Patient: JACKIE CAICEDO Exam Date: 07/07/2021 : 1965 Gender:F Ordering : DR TOAN BROWN . Admission #: [id number] Family : Order #: [id number] CLICK HERE TO VIEW EXAM RADIOLOGY REPORT [...] lung cancer at age 65. 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 Work Phone: Plan of Treatment Date Care Activity Detail Author Start: 09-12-2026 Screening for malign ant neoplasm of cervix Pap Smear [facility] Start: 12-26-2024 Tobacco Screening Tobacco Screening [facility] Start: 11-26-2023 COVID-19 Vaccine ( season) COVID-19 Vaccine ( season) [facility] Start: 11-26-2023 COVID-19 Vaccine ( season) COVID-19 Vaccine () [facility] Start: 11-26-2023 Influenza vaccination Influenza Vacc ine [facility] Start: 08-09-2023 Screening for malign ant neoplasm of colon Colonoscopy [facility] Start: 11-09-2015 Administration of varicella zoster vaccine Zoster (Shingles) Vaccine (1 of 2) [facility] Start: 1984 DTaP,Tdap and Td Vac cines (1 - Tdap) DTaP,Tdap and Td Vaccines (1 - Tdap) [facility] Start: 11-09-1983 Adult BMI Screening Adult BMI Screen ing [facility] Start: 1977 Depression Screening Depression Scre ening [facility] End: 12-26-2024 Colonoscopy Colonoscopy GI Routine Encounter For Colonoscopy In Patient With Family History Of Colon Cancer 1 Occurrences starting 12/27/2023 until 12/26/2024 [employer] Work Phone: Comment on above: 1 Occurrences starti ng 12/27/2023 until 12/26/2024 Payers Date Payer Category Payer Blue Cross Blue Shie ld Managed Care - O ANTHEM Member Subscriber Plan / Payer (Effective 2022-Present) Name: Jackie Caicedo Member ID: [id number] Relation to Subscriber: Self Name: Jackie Caicedo Subscriber ID: [id number] Payer ID: [id number] ([facility]) Type: Not on file Address: [address] [id number] 2022 Unknown ALEXANDR JEET ACCE SS (O) [id number] 2022-Present [phone] [id number] [place], [place] [id number] 2022 Unknown [id number] 2019 Unknown [id number] 1965 Unknown [id number]. 593 1965 Unknown [id number]. 593 1965 Unknown [id number]. 593 1965 Unknown [id number]. 593 1965 Unknown [id number] [id number]. 593 1965 Unknown [id number]. 1259 1965 Unknown [id number]. 1286 1965 Unknown [id number] [id number]. 1286 1959 Self-pay Unknown [id number] 593 Social History Date Type Detail Facility Start: 05-29-2017 Tobacco smoking stat [facility] Never smoked tobacco [facility] Start: 05-29-2017 Tobacco use and exposure Smokeless tobacco non-user [facility] Start: 12-27-2023 End: 01-24-2024 Alcoholic beverage intake Current non-drinker of alcohol (finding) [facility] Start: 05-07-2020 End: 12-27-2023 History of Social function [facility] Start: 05-07-2020 End: 12-27-2023 Tobacco use panel [facility] Childcare Unknown [facility] Start: 1965 Sex assigned at Not on file P [facility] Start: 10-30-2014 Sex Female (finding) [facility] History of Present illness Narrative 01-24-2024 Latoya Cheek, ACIDIZER WATER WELL-PIECE DYE WORKER - 01/24/2024 11:00 AM EDT Note Date & Type Note Facility 01-24-2024 History of Presen t illness Narrative Images from the original note were not included. Chief Complaint: Family history of colon cancer [...] mouth in the morning., Disp: , Rfl: Social History Socioeconomic History Marital status: Spouse [...] Social History Narrative Not on file Social Drivers of Health Financial Resource Strain: Not on [...] not ill-appearing. HENT: Head: Normocephalic and atraumatic. Eyes: Pupils: Pupils are equal, round, and reactive to light. Pulmonary: Effort: Pulmonary effort is normal. No respiratory distress. Musculoskeletal: General: Normal range of motion. Cervical back: Normal range of motion. Neurological: Mental Status: She is alert and [...] patient/family/caregiver Referring and communicating with other health healthcare advisory services manager Encounter for colonoscopy in patient with family history of colon cancer [Z12.11, Z80.0] ANNA QUINTEROS [facility] General Surgery [place] This note was created with the assistance of a speech recognition program. While intending to generate a timely document that accurately reflects the content of the visit, no guarantee can be provided that every grammatical or spelling mistake has been or will be identified or corrected. Thank you for your understanding. Video Visit via Real-time Synchronous Audiovisual Provider Location: [facility] GENERAL SURGERY [address] [place] [phone] Patient Location: Other Video Visit Consent Statement: [...] that there are some limitations compared to hncp-gr-dcic evaluations. The patient consented to the presence of additional virtual and/or in-person participants. We elected to proceed. ANNA Quinteros 01/24/24 1116 documented in this encounter [facility] History of Present illness Narrative 12-27-2023 ANNA Quinteros - 12/27/2023 12:00 PM EDT Note Date [...] the morning., Disp: , Rfl: peg 3350-sod sulf,dnni-myz-rge 178.7-7.3-0.5 gram recon soln, Take 1 kit [...] patient/family/caregiver Referring and communicating with other health healthcare advisory services manager Encounter for colonoscopy in patient with family history of colon cancer [Z12.11, Z80.0] LATOYA CHEEK, ACIDIZER WATER WELL-PIECE DYE WORKER [facility] [place] This note was created with the assistance of a speech recognition program. While intending to generate a timely document that accurately reflects the content of the visit, no guarantee can be provided that every grammatical or spelling mistake has been or will be identified or corrected. Thank you for your understanding. Video Visit via Real-time Synchronous Audiovisual Provider Location: [facility] [address] [facility] [phone] Patient Location: Other Video Visit Consent Statement: [...] that there are some limitations compared to epku-lj-ztfa evaluations. The patient consented to the presence of additional virtual and/or in-person participants. We elected to proceed. ANNA Quinteros 12/27/23 1209 documented in this encounter [facility] Evaluation note Note Date & Type Note Facility Evaluation note Diagnosis Encounter for colonoscopy in patient with family history of colon cancer- Primary documented in this encounter [facility] Evaluation note Note Date & Type Note Facility Evaluation note Diagnosis Encounter for colonoscopy in patient with family history of colon cancer- Primary documented in this encounter [facility] Instructions Note Date & Type Note Facility Instructions Not on filedocumented in this en counter [facility] Instructions Note Date & Type Note Facility Instructions Not on filedocumented in this en counter [facility] Summary Purpose Family History No Family History Records FoundNo Family History Records FoundNo Family History Records Found Advance Directives No Advanced Directives Records FoundNo Advanced Directives Records FoundNo Advanced Directives Records Found Reason for Referral Specialty Diagnoses / Procedures Referred By Kaitlyn davis Referred To Contact Diagnoses Encounter for colonoscopy in patient with family history of colon cancer Latoya Cheek APRN-CNP [address] [place] [address] Referral ID Status Reason Start Date Expiration Date Visits Re quested Visits Authorized [id number] Closed 1 1 Additional Source Comments INFORMATION SOURCE (unrecogn ized section and content) DATE CREATED AUTHOR 06/30/2022 [facility] DATE CREATED AUTHOR AUTHOR'S ORGANIZ ATION 09/15/2023 [facility] EPIC DATE CREATED AUTHOR AUTHOR'S ORGANIZ ATION 01/26/2024 [facility] Reason for Visit (unrecogniz ed section and content) Reason Comments Colon Cancer Screening 5 year recall Reason Comments Colon Cancer Screening Updated H&P Care Teams (unrecognized sec tion and content) Seed Cutter Relationship Specialty Start Date End Date Marcos Peralta DO [address] [place] [address] PCP - General Internal Medicine 07/20/18 Seed Cutter Relationship Specialty Start Date End Date Marcos Peralta DO [address] [place] [address] PCP - General Internal Medicine 07/20/18 FOR [...] BE BASED ON THE PRIMARY CLINICAL RECORDS. [employer] [facility]. provides no warranty or guarantee of the accuracy or completeness of information in this document.
--- NOTE | 2024-01-31 06:37 | PM.GSPRC ---
Date of procedure: 01/31/24 Indications for Procedure: screening for cancer/family history of colon cancer in mother Pre-op diagnosis: screening for cancer Post-op diagnosis: same as pre-op Procedure: colonoscopy Findings: Normal colon Anesthesia: MAC Surgeon: Jeff Smith Procedure Summary: The patient was taken to the operating suite and placed in the left lateral position after being given IV conscious sedation as above. Rectal digital exam normal. No external? hemorrhoids noted. The Olympus video colonoscope was then advanced under direct visualization into the rectum, sigmoid colon, descending colon, transverse colon, and ascending colon to the ileocecal valve which was visualized.? Appendiceal lumen was visualized. There were no polyps, tumors, or diverticular disease seen. The scope was then slowly withdrawn with air being desufflated as the scope was withdrawn and again finding no abnormalities. There were no internal hemorrhoids or external hemorrhoids noted. The patient tolerated the procedure well and went to the recovery area in satisfactory condition. Would recommend repeat screening colonoscopy in 5 years due to positive family history of colon cancer in mother. Estimated blood loss (mL): 0 Specimens: None Pathology: none sent Condition: stable Disposition: PACU
[2024-01-31] MEDS: 0.9 % SODIUM CHLORIDE 500 ML 50 ML IV (07:00)
[2024-01-31 07:39] VITALS: BP 111/61; PULSE 71; O2SAT 99
[2024-01-31 07:54] VITALS: BP 111/61; PULSE 66; O2SAT 100
[2024-01-31 08:09] VITALS: BP 135/75; PULSE 71; O2SAT 98
== END 2024-01-31 08:09 | disposition home or self-care (01) ==
PROVIDERS: PCP Internal Medicine; Visit Provider Surgery
PROC: (CPT 812; principal; 2024-01-31 07:30)
DX: Z12.11 Encounter for screening for malignant neoplasm of colon (principal); Z80.0 Family history of malignant neoplasm of digestive organs; E78.00 Pure hypercholesterolemia, unspecified; Z90.49 Acquired absence of other specified parts of digestive tract; Z90.710 Acquired absence of both cervix and uterus; Z98.51 Tubal ligation status
CPT/HCPCS: 45378; J2704

== ENCOUNTER 2024-09-18 14:51 | Outpatient (REF) | payer BC, SELFPAY ==
--- OUTSIDE RECORDS SUMMARY | 2024-09-18 13:00 | XMS_ITS | Encounter Summary ---
Author Organization [facility] Address [address] [place] [address] Care Team Providers Care Addiction Professional Name Role Phone FabianMarcos Cielo MELVIN Primary Care Provider [phone] Reason for Visit * Reason Comments Well Women Visit Encounter Details Date Type Department Care Team (Late st Contact Info) Description 09/18/2024 1:00 PM EDT Office Visit [facility] [address] [place] [phone] Romulo Wong DO [address] [place] [address] Well woman exam with routine gynecological exam; Breast cancer screening by mammogram; Postmenopausal state Social History Tobacco Use Types Packs/Day Years Used Date Smoking Tobacco: Never Smokeless Tobacco: Never Alcohol Use Standard Drinks/Week Comments Never 0 (1 standard drink = 0.6 oz pur e alcohol) Comments Unknown Sex and Gender Information Value Date Recorded Sex Assigned at Not on file Legal Sex Female 8:22 PM EDT Gender Identity Not on file Sexual Orientation Not on file documented as of this encounter Last Filed Vital Signs Vital Sign Reading Time Taken Comments Blood Pressure 120/82 09/18/2024 1:19 PM EDT Pulse - - Temperature - - Respiratory Rate - - Oxygen Saturation - - Inhaled Oxygen Concentration - - Weight 78.7 kg (173 lb 6.4 oz) 09/18/2024 1:19 P M EDT Height - - Body Mass Index 28.86 09/07/2022 1:49 PM EDT documented in this encounter Progress Notes * Lisa Gordon, INSURANCE APPRAISER - 09/18/2024 1:00 PM EDT Reason for Appointment: Patient ID: Jackie Fierro is a 58 y.o. female who presents for Well Women Visit Patient presents today for Annual Exam. MEDICATIONS Current Outpatient Medications Medication Instructions atorvastatin (LIPITOR) 40 mg, Oral, Every evening ALLERGIES No Known Allergies PROBLEMS Active Ambulatory Problems Diagnosis Date Noted History of bilateral salpingo-oophorectomy (BSO) 09/02/2022 Hypercholesterolemia 09/02/2022 Low back strain 09/02/2022 Right ovarian cyst 09/02/2022 Status post hysterectomy 09/02/2022 Surgical menopause 09/02/2022 Resolved Ambulatory Problems Diagnosis Date Noted No Resolved Ambulatory Problems Past Medical History: Diagnosis Date BMI 26.0-26.9,adult Breast cancer screening by mammogram Depression screening Encounter for gynecological examination (general) (routine) without abnormal findings H/O abdominal hysterectomy Lumbar spine strain Postop check HISTORY PAST MEDICAL HISTORY SOCIAL HISTORY Past Medical History: Diagnosis Date BMI 26.0-26.9,adult Breast cancer screening by mammogram Depression screening Encounter for gynecological examination (general) (routine) without abnormal findings H/O abdominal hysterectomy History of bilateral salpingo-oophorectomy (BSO) Hypercholesterolemia Lumbar spine strain Postop check Right ovarian cyst Surgical menopause Social History Tobacco Use Smoking status: Never Smokeless tobacco: Never Substance Use Topics Alcohol use: Never Drug use: Never FAMILY HISTORY Family History Problem Relation Name Age of Onset Hyperlipidemia Mother Hypertension Mother Cancer Mother Hypertension Father Hyperlipidemia Father Hyperlipidemia Sister Hypertension Sister Dunham Syndrome Sister Cancer Maternal Grandmother Cancer Maternal Grandfather Cancer Paternal Grandmother SURGICAL HISTORY Past Surgical History: Procedure Laterality Date BREAST BIOPSY Left 2013 CHOLECYSTECTOMY 2006 COLONOSCOPY 2019 DILATION AND CURETTAGE OF UTERUS 2010 HYSTEROSCOPY 2009 LAPAROSCOPY DIAGNOSTIC / BIOPSY / ASPIRATION / LYSIS 1993 Diagnostic laparoscopy with tubal ligation TOTAL ABDOMINAL HYSTERECTOMY W/ BILATERAL SALPINGOOPHORECTOMY 2020 TUBAL LIGATION VAGINAL DELIVERY x2 REVIEW OF SYSTEMS Review of Systems: Review of Systems Constitutional: Negative. HENT: Negative. Eyes: Negative. Respiratory: Negative. Cardiovascular: Negative. Gastrointestinal: Negative. Genitourinary: Negative. Musculoskeletal: Negative. Skin: Negative. Neurological: Negative. All other systems reviewed and are negative. Hematological: Negative. Endocrine: Negative. Allergic/Immunologic: Negative. OBJECTIVE Objective: Physical Exam Constitutional: Appearance: Normal appearance. She is well-developed. Genitourinary: Vulva normal. Vaginal cuff intact. Cervix is absent. Uterus is absent. Cardiovascular: Rate and Rhythm: Normal rate and regular rhythm. Abdominal: General: Bowel sounds are normal. There is no distension. Palpations: Abdomen is soft. Tenderness: There is no abdominal tenderness. There is no guarding or rebound. Musculoskeletal: General: No swelling. Normal range of motion. Right lower leg: No edema. Left lower leg: No edema. Neurological: Mental Status: She is alert and oriented to person, place, and time. Skin: General: Skin is warm and dry. Psychiatric: Mood and Affect: Mood normal. Behavior: Behavior normal. Vitals and nursing note reviewed. Exam conducted with a bankruptcy paralegal present. Vitals: Estimated body mass index is 28.86 kg/m?? as calculated from the following: Height as of 09/07/22: 5' 5 . Weight as of this encounter: 173 lb 6.4 oz. BP: 120/82 No LMP recorded. ASSESSMENT & PLAN ICD-10-CM 1. Well woman exam with routine gynecological exam Z01.419 THIN PREP TIS PAP AND HR HPV DNA 2. Breast cancer screening by mammogram Z12.31 3. Postmenopausal state Z78.0 No orders of the defined types were placed in this encounter. Annual Wellness Exam (Post Hysterectomy): Patient presents today for routine annual exam. Patient states she has no current complaints. Patients vitals were reviewed and within normal limits. Growth and development is noted to be appropriate for age. Menstrual history is noted to be obsolete due to patients history of hysterectomy. No mental health concerns was expressed. Pap Smear: Speculum was inserted into the vagina and pap was obtained without difficulty. HPV testing was performed per guidelines. Patient was advised that pap results could take anywhere from 7 to 10 days to receive and our office will reach out to the patient with those once we have them. Patient can also view results via [employer]. I reinforced importance of condom use for STI prevention. Patient declined cultures to be performed with today's visit. Breast Exam: Upon examination, clinical breast exam was noted to be normal. Patient was counseled on breast self-awareness, including the importance of knowing what is normal for her own breasts and promptly reporting any changes such as new lumps, skin dimpling, nipple discharge, or pain. Screening mammogram recommended annually beginning at age 40 or earlier if risk factors are present. Discussed signs and symptoms of breast cancer and when to seek medical attention. Answered all patient questions. Pt advised to have dexa scan obtained as well Follow Up: Patient is to return to our office in one year for annual exam unless needed otherwise. Documented by Lisa Gordon LPN on behalf of: Romulo Wong DO documented in this encounter Plan of Treatment Upcoming Encounters Date Type Department Care Team (Late st Contact Info) Description 10/07/2025 8:30 AM EDT Office Visit [facility] [address] [place] [phone] Romulo Wong DO [address] [place], [place] [id number] Scheduled Orders Name Type Priority Associated Diagnoses Orde r Schedule THIN PREP TIS PAP AND HR HPV DNA Pathology and Cytology Routine Well woman exam with routine gynecological exam Ordered: 09/18/2024 documented as of this encounter Visit Diagnoses Diagnosis Well woman exam with routine gynecological exam Routine gynecological examination Breast cancer screening by mammogram Postmenopausal state Asymptomatic postmenopausal status (age-related) (natural) documented in this encounter Care Teams Addiction Professional Relationship Specialty Start Date End Date Marcos Peralta DO [address] [facility] [place] [phone] PCP - General Internal Medicine 09/07/22 documented as of this encounter
--- OUTSIDE RECORDS SUMMARY | 2024-09-18 14:54 | XMS_ITS | Patient Health Record ---
Author Organization [facility] Address [address] [place] [address] Care Team Providers Care Documentation Engineer Name Role Phone Prudencio Prado [phone] Reason For Referral No Information Social History Tobacco Use: Social History Observation Description Date Details (start date - stop date) Never Smoker NA - NA Smoking History Question Answer Notes Smoking Status NonSmoker Problems Problem Type SNOMED Code ICD Code Onset Dates Problem Status W/U Status Risk Notes Problem 94876057144836652 Pain in right hand (M79.641) Active confirmed Problem Acquired trigger finger (0327601) Trigger thumb, right thumb (M65.311) Active confirmed Problem Acquired trigger finger (0183026) Trigger thumb, left thumb (M65.312) Active confirmed Problem 819337733716326 Pain in left hand (M79.642) Active confirmed Problem 476032376 Preop testing (Z01.818) Active confirmed Problem 830105553 Surgical aftercare, nervous system (Z48.811) Active confirmed Plan Of Treatment Pending Test Test Name Order Date EKG 11/30/2022 Surgery Scheduling 11/30/2022 Work Slip 01/09/2023 Insurance Providers Payer Name Payer Address Payer Phone Subscriber Number Group Number Insured Name Patient Relationship to Insured Coverage Start Date Coverage End Date [employer] [address] [place] [phone] [id number] KRYSTA CAICEDO Self - patient is the insured Medical (General) History Medical History History ICD Code Cancer Type: N/A Do you have a CPAP machine?: No Do you use the CPAP machine?: No Do you have any dental probl ems i.e. 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
--- OUTSIDE RECORDS SUMMARY | 2024-09-18 14:54 | XMS_ITS | Clinical Summary ---
Author Organization [facility] Address [address] [place] [address] Care Team Providers Care English Composition Instructor Name Role Phone Marcos Peralta Primary Care Provider [phone] Allergies No known active allergies Medications atorvastatin (Lipitor) 40 MG tablet Take 40 mg by mouth in the evening. 12/15/2021 Active Active Problems Problem Noted Date Diagnosed Date History of bilateral salpingo-oophorectomy (BSO) 09/02/2022 Hypercholesterolemia 09/02/2022 Low back strain 09/02/2022 Right ovarian cyst 09/02/2022 Status post hysterectomy 09/02/2022 Surgical menopause 09/02/2022 Encounters Date Type Department Care Team Description 09/18/2024 1:00 PM EDT Office Visit [facility] [address] [place] [address] Romulo Wong DO Well woman exam with routine gynecological exam; Breast cancer screening by mammogram; Postmenopausal state 09/18/2024 Bamboo flowsheet [facility] [address] [place] [address] Romulo Wong DO 09/16/2024 Travel 09/03/2024 Telephone [facility] [address] [place] [address] Lisa Gordon LPN from Last 3 Months Family History Medical History Relation Name Comments Hyperlipidemia Father Hypertension Father Cancer Maternal Grandfather Cancer Maternal Grandmother Cancer Mother Hyperlipidemia Mother Hypertension Mother Cancer Paternal Grandmother Hyperlipidemia Sister Hypertension Sister Dunham Syndrome Sister Relation Name Status Comments Father Maternal Grandfather Maternal Grandmother Mother Paternal Grandmother Sister Son (2) Alive Social History Tobacco Use Types Packs/Day Years Used Date Smoking Tobacco: Never Smokeless Tobacco: Never Tobacco Cessation:Counseling Given: Not Answered Alcohol Use Standard Drinks/Week Comments Never 0 (1 standard drink = 0.6 oz pur e alcohol) Comments Unknown Sex and Gender Information Value Date Recorded Sex Assigned at Not on file Legal Sex Female 8:22 PM EDT Gender Identity Not on file Sexual Orientation Not on file Last Filed Vital Signs Vital Sign Reading Time Taken Comments Blood Pressure 120/82 09/18/2024 1:19 PM EDT Pulse - - Temperature - - Respiratory Rate - - Oxygen Saturation - - Inhaled Oxygen Concentration - - Weight 78.7 kg (173 lb 6.4 oz) 09/18/2024 1:19 P M EDT Height 165.1 cm (5' 5 ) 09/07/2022 1:49 PM EDT Body Mass Index 28.86 09/07/2022 1:49 PM EDT Plan of Treatment Upcoming Encounters Date Type Department Care Team (Late st Contact Info) Description 10/07/2025 8:30 AM EDT Office Visit [facility] OB [address] [facility] [address] Romulo Wong, DO [address] [facility] [address] [place], [place] [id number] Insurance [facility] Care Teams English Composition Instructor Relationship Specialty Start Date End Date Marcos Peralta DO [address] [place] [address] PCP - General Internal Medicine 09/07/22
--- OUTSIDE RECORDS SUMMARY | 2024-09-18 14:54 | XMS_ITS | Encounter Summary ---
Author Organization [facility] Address [address] [place] [address] Care Team Providers Care Explosives Handler Name Role Phone Marcos Peralta DO Primary Care Provider [phone] Encounter Details Date Type Department Care Team (Latest Contact Info) Description 09/16/2024 Travel Social History Tobacco Use Types Packs/Day Years [...] on file documented as of this encounter Plan of Treatment Upcoming Encounters Date Type Department Care Team (Late st Contact Info) Description 10/07/2025 8:30 AM EDT Office Visit [facility] [address] [facility] [place] [address] Romulo Wong DO [address] [facility] [address] [place], [place] [address] documented as of this encounter Visit Diagnoses Not on filedocumented in this encounter Care Teams Explosives Handler Relationship Specialty Start Date End Date Marcos Peralta DO [address] [place] [address] PCP - General Internal Medicine 09/07/22 documented as of this encounter
--- OUTSIDE RECORDS SUMMARY | 2024-09-18 14:54 | XMS_ITS | Encounter Summary ---
Author Organization [facility] Address [address] [place] [address] Care Team Providers Care Aluminum Pourer Name Role Phone Marcos Cortez Primary Care Provider [phone] Encounter Details Date Type Department Care Team (Late st Contact Info) Description 08/18/2022 Clinisync Result Encounter [facility] External Department Unsolicited Toan Wong, DO [address] [place] [phone] Social History Tobacco Use Types Packs/Day Years Used Date Smoking Tobacco: Never Assessed Comments Unknown Sex and Gender Information Value Date Recorded Sex Assigned at Not on file Legal Sex Female 8:22 PM EDT Gender Identity Not on file Sexual Orientation Not on file documented as of this encounter Plan of Treatment Upcoming Encounters Date Type Department Care Team (Late st Contact Info) Description 10/07/2025 8:30 AM EDT Office Visit [facility] OB [address] [place] [address] Toan Wong DO [address], [place] [address] documented as of this encounter Procedures Procedure Name Priority Date/Time Associated Diagnosis Comments MG MAMM SCREEN 3D CARSON CAD 08/18/2022 10:04 AM EDT documented in this encounter Results * MG MAMM SCREEN 3D CARSON CAD (08/18/2022 10:04 AM EDT) Anatomical Region Laterality Modality Other 08/18/2022 10:0 4 AM EDT Narrative 08/18/2022 10:04 AM EDT Patient: KRYSTA FIERRO Exam Date: 08/18/2022 : 1965 Gender:F Ordering : DR TOAN WONG . Admission #: [id number] Family : DR MARCOS CORTEZ D.O. Order #: [id number] CLICK HERE TO VIEW EXAM RADIOLOGY REPORT PROCEDURE: MAMMOGRAM SCREENING 3D BILATERAL CAD COMPARISON: MG MAMM SCREEN 3D CARSON CAD, 06/24/2020. MG MAMM SCREEN 3D CARSON CAD, 07/07/2021. INDICATIONS: Screening mammography Calculator Name NCI Breast Cancer Risk Assessment Tool 5 Year Breast Cancer Risk 1.80% Lifetime Breast Cancer Risk 11.60% Personal Breast Cancer No Personal Ovarian Cancer No Treatments None Family Cancers Mother with bowel cancer at age 55; Grandfather-maternal with bowel cancer at age 67; Grandmother-paternal with lung cancer at age 65. LOCATION: [facility] [place] BREAST COMPOSITION: Heterogeneously dense,which may obscure small masses. FINDINGS: DIAGNOSTIC CATEGORY 2--BENIGN FINDING. NO CHANGE FROM COMPARISON. Scattered benign-appearing nodules are present. Scattered benign-appearing calcifications are present. Scattered benign-appearing lymph nodes are present. RIGHT BREAST: No significant suspicious finding. LEFT BREAST: No significant suspicious finding. RECOMMENDATIONS: ROUTINE MAMMOGRAM AND CLINICAL EVALUATION IN 12 MONTHS. PLEASE NOTE: A NORMAL MAMMOGRAM DOES NOT EXCLUDE THE POSSIBILITY OF BREAST CANCER. A CLINICALLY SUSPICIOUS PALPABLE LUMP SHOULD BE BIOPSIED. Dictated by: Naseem Muñiz MD on 08/18/2022 at 12:09 Approved by: Naseem Muñiz MD on 08/18/2022 at 12:11 Procedure Note Radiology, Radiologist, - 08/18/2022 Patient: KRYSTA FIERRO Exam Date: 08/18/2022 : 1965 Gender:F Ordering : DR TOAN WONG . Admission #: [id number] Family : DR MARCOS CORTEZ D.O. Order #: [id number] CLICK HERE TO VIEW EXAM RADIOLOGY REPORT PROCEDURE: MAMMOGRAM SCREENING 3D BILATERAL CAD COMPARISON: MG MAMM SCREEN 3D CARSON CAD, 06/24/2020. MG MAMM SCREEN 3DBIL CAD, 07/07/2021. INDICATIONS: Screening mammography Calculator Name NCI Breast Cancer Risk Assessment Tool 5 Year Breast Cancer Risk 1.80% Lifetime Breast Cancer Risk 11.60% Personal Breast Cancer No Personal Ovarian Cancer No Treatments None Family Cancers Mother with bowel cancer at age 55;Grandfather-maternal with bowel cancer at age 67; Grandmother-paternal with lung cancer at age 65. LOCATION: [facility] [place] BREAST COMPOSITION: Heterogeneously dense,which may obscure smallmasses. FINDINGS: DIAGNOSTIC CATEGORY 2--BENIGN FINDING. NO CHANGE FROM COMPARISON. Scattered benign-appearing nodules are present. Scatteredbenign-appearing calcifications are present. Scattered benign-appearing lymph nodes are present. RIGHT BREAST: No significant suspicious finding. LEFT BREAST: No significant suspicious finding. RECOMMENDATIONS: ROUTINE MAMMOGRAM AND CLINICAL EVALUATION IN 12 MONTHS. PLEASE NOTE: A NORMAL MAMMOGRAM DOES NOT EXCLUDE THE POSSIBILITY OFBREAST CANCER. A CLINICALLY SUSPICIOUS PALPABLE LUMP SHOULD BE BIOPSIED. Dictated by: Naseem Muñiz MD on 08/18/2022 at 12:09 Approved by: Naseem Muñiz MD on 08/18/2022 at 12:11 Toan Wong DO [facility] Final Result documented in this encounter Visit Diagnoses Not on filedocumented in this encounter Care Teams Aluminum Pourer Relationship Specialty Start Date End Date Marcos Cortez DO [address] [place] [address] PCP - General Internal Medicine 09/07/22 documented as of this encounter
--- OUTSIDE RECORDS SUMMARY | 2024-09-18 14:54 | XMS_ITS | Clinical Summary ---
Author Organization [facility] Address [address] [place] [address] Care Team Providers Care Cigar Binder Name Role Phone Unavailable Primary Care Provider Unavailabl e Social History Tobacco Use Types Packs/Day Years Used Date Smoking Tobacco: Never Assessed Comments Unknown Sex and Gender Information Value Date Recorded Sex Assigned at Not on file Legal Sex Female 10:23 AM EDT Gender Identity Not on file Sexual Orientation Not on file Plan of Treatment Health Maintenance Due Date Last Done Comments Depression Screen 1977 HIV screen 1980 Hepatitis C screen 11/09/1983 DTaP/Tdap/Td vaccine (1 - Tdap) 1984 Hepatitis B vaccine (1 of 3 - 19+ 3-dose series) 1984 Pap smear 1986 Cervical cancer screen 11/09/1995 HPV (without or with Pap) 11/09/1995 Breast cancer screen 2005 Lipids 2005 Colonoscopy 2010 Colorectal Cancer Screen 2010 FIT/FOBT: Average risk 2010 Fecal-DNA (Cologuard): Average risk 2010 Sigmoidoscopy/CT colonography 2010 Pneumococcal 50+ years Vacci ne (1 of 1 - PCV) 11/09/2015 Shingles vaccine (1 of 2) 11/09/2015 COVID-19 Vaccine ( - 2023-2 5 season) 2023 Flu vaccine (Season Ended) 2024 Hepatitis A vaccine Aged Out No longe r eligible based on patient's age to complete this topic Hib vaccine Aged Out No longer eligi ble based on patient's age to complete this topic Meningococcal (ACWY) vaccine Aged Out No longer eligible based on patient's age to complete this topic Meningococcal B vaccine Aged Out No l onger eligible based on patient's age to complete this topic Polio vaccine Aged Out No longer elig ible based on patient's age to complete this topic Insurance
--- OUTSIDE RECORDS SUMMARY | 2024-09-18 14:54 | XMS_ITS | Encounter Summary ---
Author Organization [facility] Address [address] [place] [address] Care Team Providers Care Motor Vehicle Clerk Name Role Phone Marcos Peralta Primary Care Provider [phone] Encounter Details Date Type Department Care Team (Late st Contact Info) Description 09/15/2023 Clinisync Result Encounter [facility] External Department Unsolicited Romulo Wong DO [facility] [place] [id number] Social History Tobacco Use Types Packs/Day Years [...] Visit [facility] OB [address] [place] [phone] Romulo Wong DO [facility] [place] [address] documented as of this encounter Procedures Procedure Name Priority Date/Time Associated Diagnosis Comments MM TOMOSYNTHESIS SCREENING BI 09/15/2023 10:41 AM EDT documented in this encounter Results * MM TOMOSYNTHESIS SCREENING BI (09/15/2023 10:41 AM EDT) Anatomical Region Laterality Modality Other 09/15/2023 10:4 1 AM EDT Narrative 09/15/2023 10:41 [place] [address] Mammography Report Signed Patient: KRYSTA FIERRO MR#: [id number] : 1965 Acct:[id number] Age/Sex: 57 / F ADM Date: 09/15/23 Loc: MAMMO Attending Dr: Romulo Wong D.O. Ordering Physician: Romulo Wong D.O. Results: Date of Service: 09/15/23 Follow Up: Procedure(s): MM tomosynthesis screening BI Accession Number(s): [id number] cc: Marcos Peralta D.O.; Romulo Wong D.O. Patient Name: KRYSTA FIERRO MR#: [id number] : 1965 Exam Date: 09/15/2023 Ordering Doctor: DR Romulo Wong . RADIOLOGY REPORT PROCEDURE: MM TOMOSYNTHESIS SCREENING BI COMPARISON: MG MAMM SCREEN 3D CARSON CAD, 07/07/2021. MG MAMM SCREEN 3D CARSON CAD, 08/18/2022. INDICATIONS: Screening Calculator Name NCI Breast Cancer Risk Assessment Tool 5 Year Breast Cancer Risk 1.90% Lifetime Breast Cancer Risk 11.40% Personal Breast Cancer No Personal Ovarian Cancer No Treatments None Family Cancers Mother with bowel cancer at age 55; Grandfather-maternal with bowel cancer at age 67; Grandmother-paternal with lung cancer at age 65. LOCATION: [facility] BREAST COMPOSITION: The breasts are heterogeneously dense,which may obscure small masses. FINDINGS: DIAGNOSTIC [...] BIOPSIED. Dictated by: Naseem Muñiz MD on 09/15/2023 at 10:37 Approved by: Naseem Muñiz MD on 09/15/2023 at 10:40 Dictated By: Naseem Muñiz M.D. Signed By: 09/15/23 1041 DD/ 1041 TD/TT: Parer: Procedure Note Radiology, Radiologist, MD - 09/15/2023 [place] [address] Mammography Report Signed Patient: KRYSTA FIERRO MMR#: [id number] : 1965Acct:[id number] Age/Sex: 57 / FADM Date: 09/15/23 Loc: MAMMO Attending Dr: Romulo Wong D.O. Ordering Physician: Romulo Wong D.O.Results: Date of Service: 09/15/23Follow Up: Procedure(s): MM tomosynthesis screening BI Accession Number(s): [id number] cc: Marcos Peralta D.O.; Romulo Wong D.O. Patient Name: KRYSTA FIERRO MR#: [id number] : 1965 Exam Date: 09/15/2023 Ordering Doctor: DR Romulo Wong . RADIOLOGY REPORT PROCEDURE: MM TOMOSYNTHESIS SCREENING BI COMPARISON: MG MAMM SCREEN 3D CARSON CAD, 07/07/2021. MG MAMM SCREEN 3DBIL CAD, 08/18/2022. INDICATIONS: Screening Calculator Name NCI Breast Cancer Risk Assessment Tool 5 Year Breast Cancer Risk 1.90% Lifetime Breast Cancer Risk 11.40% Personal Breast Cancer No Personal Ovarian Cancer No Treatments None Family Cancers Mother with bowel cancer at age 55;Grandfather-maternal with bowel cancer at age 67; Grandmother-paternal with lung cancer at age 65. LOCATION: [facility] BREAST COMPOSITION: The breasts are heterogeneously dense,which may obscure small masses. FINDINGS: DIAGNOSTIC [...] BIOPSIED. Dictated by: Naseem Muñiz MD on 09/15/2023 at 10:37 Approved by: Naseem Muñiz MD on 09/15/2023 at 10:40 Dictated By: Naseem Muñiz M.D. Signed By:09/15/23 1041 DD/ 1041 TD/TT: Parer: us Romulo Wong DO [facility] Final Result documented in this encounter Visit Diagnoses Not on filedocumented in this encounter Care Teams Motor Vehicle Clerk Relationship Specialty Start Date End Date Marcos Peralta DO [address] [place] [address] PCP - General Internal Medicine 09/07/22 documented as of this encounter
--- OUTSIDE RECORDS SUMMARY | 2024-09-18 14:54 | XMS_ITS | Encounter Summary ---
Author Organization [facility] Address [address] [place] [address] Care Team Providers Care Fine Arts Instructor Name Role Phone Marcos Peralta DO Primary Care Provider [phone] Encounter Details Date Type Department Care Team (Late Contact Info) Description 09/18/2024 Bamboo flowsheet [facility] OB [address] [facility] [place] [address] [place], [place] [address] Social History Tobacco Use Types Packs/Day Years [...] Encounters Date Type Department Care Team (Late Contact Info) Description 10/07/2025 8:30 AM EDT Office Visit [facility] OB [address] [place] [address] Romulo Wong [address] [place] [phone] documented as of this encounter Visit Diagnoses Not on filedocumented in this encounter Care Teams Fine Arts Instructor Relationship Specialty Start Date End Date Marcos Peralta DO [address] [place] [address] PCP - General Internal Medicine 09/07/22 documented as of this encounter
--- OUTSIDE RECORDS SUMMARY | 2024-09-18 14:54 | XMS_ITS | Encounter Summary ---
Author Organization [facility] Address [address] [facility] [place] [address] Care Team Providers Care Health Technician Hearing Name Role Phone Marcos Peralta Primary Care Provider [phone] Encounter Details Date Type Department Care Team (Late st Contact Info) Description 09/19/2023 Orders Only [facility] [address] [facility] [place] [address] Mariana Chavez LPN [address] [facility] [address] Social History Tobacco Use Types Packs/Day Years [...] EDT Office Visit [facility] [address] [facility] [place] [address] Romulo Wong [address] [facility] [place] [address] documented as of this encounter Procedures Procedure Name Priority Date/Time Associated Diagnosis Comments PAP SMEAR Routine 09/13/2023 12:00 AM EDT documented in this encounter Results * Pap Smear (09/13/2023 12:00 AM EDT) Swab Cervical swab / Unknown Judith Nurse [facility] Ob LAB CYTOLOGY ORDERABLES Final Result EXTERNAL LAB documented in this encounter Visit Diagnoses Not on filedocumented in this encounter Care Teams Health Technician Hearing Relationship Specialty Start Date End Date Marcos Peralta DO [address] [place] [address] PCP - General Internal Medicine 09/07/22 documented as of this encounter
[2024-09-20 10:08] LABS: Age Gdln ACOG Testing Note (.); HPV Aptima Negative (Negative); IGP, Aptima HPV, rfx 16/18,45 Note (.)
== END 2024-09-18 14:52 | disposition home or self-care (01) ==
LOC: LAB 14:51
PROVIDERS: PCP Internal Medicine; Visit Provider Obstetrics & Gynecology
DX: Z01.419 Encounter for gynecological examination (general) (routine) without abnormal findings (principal)
CPT/HCPCS: 87624; 88175

== ENCOUNTER 2024-09-19 16:41 | Outpatient (OUT) | payer BC, SELFPAY ==
--- OUTSIDE RECORDS SUMMARY | 2024-09-18 13:00 | XMS_ITS | Encounter Summary ---
Author Organization [facility] Address [address] [place] [address] Care Team Providers Care Crystal Finisher Name Role Phone FabianMarcos Cielo MELVIN Primary Care Provider [phone] Reason for Visit * Reason Comments Well Women Visit Encounter Details Date Type Department Care Team (Late st Contact Info) Description 09/18/2024 1:00 PM EDT Office Visit [facility] [address] [place] [phone] Romulo Wong DO [address] [facility] [place] [address] Well woman exam with routine [...] this encounter Progress Notes * Lisa Gordon, WAREHOUSE SHIPPING RECEIVING CLERK - 09/18/2024 1:00 PM EDT Reason for [...] nursing note reviewed. Exam conducted with a job cost estimator present. Vitals: Estimated body mass index is [...] them. Patient can also view results via Nirvanixt. I reinforced importance of condom use for [...] EDT Office Visit [facility] [address] [facility] [place] [phone] Romulo Wong DO [address] [facility] [address] [place], [place] [phone] Scheduled Orders Name Type Priority Associated Diagnoses [...] (natural) documented in this encounter Care Teams Crystal Finisher Relationship Specialty Start Date End Date Marcos Peralta DO [address] [facility] [place] [address] PCP - General Internal Medicine 09/07/22 documented as of this encounter
--- OUTSIDE RECORDS SUMMARY | 2024-09-19 16:44 | XMS_ITS | Encounter Summary ---
Author Organization [facility] Address [address] [place] [address] Care Team Providers Care Operations Plant Attendant Name Role Phone Marcos Peralta Primary Care Provider [phone] Encounter Details Date Type Department Care Team (Late st Contact Info) Description 09/15/2023 Clinisync Result Encounter [facility] External Department Unsolicited Romulo Wong DO [facility] [place] [phone] Social History Tobacco Use Types Packs/Day Years [...] Visit [facility] BCP OB [address] [place] [address] Romulo Wong DO [facility] [place] [address] documented as of this encounter Procedures Procedure Name Priority Date/Time Associated Diagnosis Comments MM TOMOSYNTHESIS SCREENING BI 09/15/2023 10:41 AM EDT documented in this encounter Results * MM TOMOSYNTHESIS SCREENING BI (09/15/2023 10:41 AM EDT) Anatomical Region Laterality Modality Other 09/15/2023 10:4 1 AM EDT Narrative 09/15/2023 10:41 [place] [address] Mammography Report Signed Patient: KRYSTA FIERRO MR#: [id number] : 1965 Acct:[id number] Age/Sex: 57 / F ADM Date: 09/15/23 Loc: MAMMO Attending Dr: Romulo Wong D.O. Ordering Physician: Romulo Wong D.O. Results: Date of Service: 09/15/23 Follow Up: Procedure(s): MM tomosynthesis screening BI Accession Number(s): [id number] cc: Marcos Peralta D.O.; Romulo Wong D.O. Patient Name: KRYSTA FIERRO MR#: [id number] : 1965 Exam Date: 09/15/2023 Ordering Doctor: [...] lung cancer at age 65. LOCATION: [facility] BREAST COMPOSITION: The breasts are heterogeneously [...] Signed By: 09/15/23 1041 DD/ 1041 TD/TT: Oil Developer: Procedure Note Radiology, Radiologist, MD - 09/15/2023 [place] [address] Mammography Report Signed Patient: KRYSTA FIERRO MMR#: [id number] : 1965Acct:[id number] Age/Sex: 57 / FADM Date: 09/15/23 Loc: MAMMO Attending Dr: Romulo Wong D.O. Ordering Physician: Romulo Wong D.O.Results: Date of Service: 09/15/23Follow Up: Procedure(s): MM tomosynthesis screening BI Accession Number(s): [id number] cc: Marcos Peralta D.O.; Romulo Wong D.O. Patient Name: KRYSTA FIERRO MR#: [id number] : 1965 Exam Date: 09/15/2023 Ordering Doctor: [...] lung cancer at age 65. LOCATION: [facility] BREAST COMPOSITION: The breasts are heterogeneously [...] M.D. Signed By:09/15/23 1041 DD/ 1041 TD/TT: Oil Developer: us Romulo Wong DO [facility] Final Result documented in this encounter Visit Diagnoses Not on filedocumented in this encounter Care Teams Operations Plant Attendant Relationship Specialty Start Date End Date Marcos Peralta DO [address] [place] [address] PCP - General Internal Medicine 09/07/22 documented as of this encounter
--- OUTSIDE RECORDS SUMMARY | 2024-09-19 16:44 | XMS_ITS | Clinical Summary ---
Author Organization [facility] Address [address] [place] [address] Care Team Providers Care Performance Improvement Consultant Name Role Phone Marcos Peralta Primary Care Provider [phone] Allergies No known active allergies Medications atorvastatin [...] 09/18/2024 1:00 PM EDT Office Visit [facility] [address] [place] [address] Romulo Wong DO Well woman exam with routine gynecological exam; Breast cancer screening by mammogram; Postmenopausal state 09/18/2024 Bamboo flowsheet [facility] [address] [place] [address] Romulo Wong DO 09/16/2024 Travel 09/03/2024 [address]phone [facility] [address] [place] [address] Lisa Gordon LPN from Last 3 Months Family History Medical History Relation Name Comments Hyperlipidemia Father Hypertension Father Cancer Maternal Grandfather Cancer Maternal Grandmother Cancer Mother Hyperlipidemia Mother Hypertension Mother Cancer Paternal Grandmother Hyperlipidemia Sister Hypertension Sister Dnuham Syndrome Sister Relation Name Status Comments Father [...] EDT Office Visit [facility] [address] [facility] [address] Romulo Wong, DO [address] [facility] [address] [place] [place], [place] [id number] Insurance [facility] Care Teams Performance Improvement Consultant Relationship Specialty Start Date End Date Marcos Peralta DO [address] [place] [address] PCP - General Internal Medicine 09/07/22
--- OUTSIDE RECORDS SUMMARY | 2024-09-19 16:44 | XMS_ITS | Patient Health Record ---
Author Organization [facility] Address [address] [place] [address] Care Team Providers Care Market Research Analyst Name Role Phone Prudencio Prado [phone] Reason For Referral No Information Social History Tobacco Use: Social History Observation Description Date Details (start date - stop date) Never Smoker NA - NA Smoking History Question Answer Notes Smoking Status NonSmoker Problems Problem Type SNOMED Code ICD Code Onset Dates Problem Status W/U Status Risk Notes Problem 07746181049350590 Pain in right hand (M79.641) Active confirmed Problem Acquired trigger finger (5597504) Trigger thumb, right thumb (M65.311) Active confirmed Problem Acquired trigger finger (3632475) Trigger thumb, left thumb (M65.312) Active confirmed Problem [id number] Pain in left hand (M79.642) Active confirmed Problem 512454320 Preop testing (Z01.818) Active confirmed Problem 967753348 Surgical aftercare, nervous system (Z48.811) Active confirmed Plan Of Treatment Pending Test Test Name Order Date EKG 11/30/2022 Surgery Scheduling 11/30/2022 Work Slip 01/09/2023 Insurance Providers Payer Name Payer Address Payer Phone Subscriber Number Group Number Insured Name Patient Relationship to Insured Coverage Start Date Coverage End Date [employer] [address] [place] [phone] [id number] KRYSTA CAICEDO Self - patient is [...]
--- OUTSIDE RECORDS SUMMARY | 2024-09-19 16:44 | XMS_ITS | Encounter Summary ---
Author Organization [facility] Address [address] [facility] [place] [address] Care Team Providers Care Underwriting Clerks Supervisor Name Role Phone Marcos Peralta Primary Care Provider [phone] Encounter Details Date Type Department Care Team (Late st Contact Info) Description 09/19/2023 Orders Only [facility] [address] [facility] [place] [address] Mariana Chavez LPN [address] [facility] [place] [address] Social History Tobacco Use Types Packs/Day Years [...] EDT Office Visit [facility] [address] [facility] [place] [address] Romulo Wong [address] [facility] [place] [address] documented as of this encounter [...] on filedocumented in this encounter Care Teams Underwriting Clerks Supervisor Relationship Specialty Start Date End Date Marcos Peralta DO [address] [place] [address] PCP - General Internal Medicine 09/07/22 documented as of this encounter
--- OUTSIDE RECORDS SUMMARY | 2024-09-19 16:44 | XMS_ITS | Encounter Summary ---
Author Organization [facility] Address [address] [place] [address] Care Team Providers Care Household Appliance Mechanic Name Role Phone Marcos Peralta DO Primary Care Provider [phone] Encounter Details Date Type Department Care Team (Late Contact Info) Description 09/18/2024 Bamboo flowsheet [facility] OB [address] [facility] [place] [address] [place], [place] [address] Social History Tobacco Use Types Packs/Day Years [...] 10/07/2025 8:30 AM EDT Office Visit [facility] [address] [place] [address] Romulo Wong [address] [place] [id number] documented as of this encounter Visit Diagnoses Not on filedocumented in this encounter Care Teams Household Appliance Mechanic Relationship Specialty Start Date End Date Marcos Peralta DO [address] [place] [address] PCP - General Internal Medicine 09/07/22 documented as of this encounter
--- OUTSIDE RECORDS SUMMARY | 2024-09-19 16:44 | XMS_ITS | Encounter Summary ---
Author Organization [facility] Address [address] [place] [address] Care Team Providers Care Residential Recycle Driver Name Role Phone Marcos Peralta DO Primary Care Provider [phone] Encounter Details Date Type Department Care Team [...] EDT Office Visit [facility] [address] [facility] [place] [address] Romulo Wong DO [address] [facility] [address] [place], [place] [id number] documented as of this encounter Visit Diagnoses Not on filedocumented in this encounter Care Teams Residential Recycle Driver Relationship Specialty Start Date End Date Marcos Peralta DO [address] [place] [address] PCP - General Internal Medicine 09/07/22 documented as of this encounter
--- OUTSIDE RECORDS SUMMARY | 2024-09-19 16:44 | XMS_ITS | Encounter Summary ---
Author Organization [facility] Address [address] [place] [address] Care Team Providers Care Merchandise Team Manager Name Role Phone Marcos Cortez Primary Care Provider [phone] Encounter Details Date Type Department Care Team (Late st Contact Info) Description 08/18/2022 Clinisync Result Encounter [facility] External Department Unsolicited Toan Wong, DO [address] [place] [id number] Social History Tobacco Use Types Packs/Day Years [...] Visit [facility] [address] [place] [address] Toan Wong DO [address] [place], [place] [address] documented as of this encounter Procedures Procedure [...] : DR TOAN WONG . Admission #: [id number] Family : DR MARCOS CORTEZ D.O. Order #: [id number] CLICK HERE TO VIEW EXAM RADIOLOGY REPORT [...] lung cancer at age 65. LOCATION: [facility] BREAST COMPOSITION: Heterogeneously dense,which may obscure [...] : DR TOAN WONG . Admission #: [id number] Family : DR MARCOS CORTEZ D.O. Order #: [id number] CLICK HERE TO VIEW EXAM RADIOLOGY REPORT [...] lung cancer at age 65. LOCATION: [facility] BREAST COMPOSITION: Heterogeneously dense,which may obscure smallmasses. [...] on 08/18/2022 at 12:11 Toan Wong DO [facility] Final Result documented in this encounter Visit Diagnoses Not on filedocumented in this encounter Care Teams Merchandise Team Manager Relationship Specialty Start Date End Date Marcos Cortez DO [address] [place] [address] PCP - General Internal Medicine 09/07/22 documented as of this encounter
--- NOTE | 2024-09-19 16:47 | MM_ITS ---
Patient Name: KRYSTA CAICEDO MR#: [id number] : 1965 Exam Date: 09/19/2024 Ordering Doctor: DR TOAN BROWN . RADIOLOGY REPORT PROCEDURE: MM TOMOSYNTHESIS SCREENING BI COMPARISON: MM TOMOSYNTHESIS SCREENING BI, 09/15/2023. MG MAMM SCREEN 3D CARSON CAD, 08/18/2022. MG MAMM SCREEN 3D CARSON CAD, 07/07/2021. MG MAMM CARSON DIAG W CAD DIG, 01/28/2013. INDICATIONS: Screening for malignant neoplasm Calculator Name NCI Breast Cancer Risk Assessment Tool 5 Year Breast Cancer Risk 2.00% Lifetime Breast Cancer Risk 11.10% Personal Breast Cancer No Personal Ovarian Cancer No Treatments None Family Cancers Mother with bowel cancer at age 55; Grandfather-maternal with bowel cancer at age 67; Grandmother-paternal with lung cancer at age ~65. LOCATION: [facility] BREAST COMPOSITION: The breasts are heterogeneously dense,which may obscure small masses. FINDINGS: RIGHT BREAST: No significant suspicious finding. Similar focal asymmetries are present pattern benign-appearing calcifications are present. Right eye hernia or nodes are noted along the chest wall. LEFT BREAST: No significant suspicious finding. Similar focal asymmetries are present pattern benign-appearing calcifications are present. Right eye hernia or nodes are noted along the chest wall. DIAGNOSTIC CATEGORY 2--BENIGN FINDING: RECOMMENDATIONS: ROUTINE MAMMOGRAM AND CLINICAL EVALUATION IN 12 MONTHS. PLEASE NOTE: A NORMAL MAMMOGRAM DOES NOT EXCLUDE THE POSSIBILITY OF BREAST CANCER. A CLINICALLY SUSPICIOUS PALPABLE LUMP SHOULD BE BIOPSIED. Dictated by: Norberto Gutierrez MD on 09/19/2024 at 17:08 Approved by: Norberto Gutierrez MD on 09/19/2024 at 17:11
== END 2024-09-19 16:42 | disposition home or self-care (01) ==
LOC: MAMMO 16:41
PROVIDERS: PCP Internal Medicine; Visit Provider Obstetrics & Gynecology
DX: Z12.31 Encounter for screening mammogram for malignant neoplasm of breast (principal); Z80.0 Family history of malignant neoplasm of digestive organs; Z80.1 Family history of malignant neoplasm of trachea, bronchus and lung
CPT/HCPCS: 77063; 77067